=== PATIENT | male | born 1965 | race Caucasian/White ===

== ENCOUNTER 2016-11-27 10:17 | Emergency (ER) | payer MEDICAID ==
[~2016-11-27 10:17] MED LIST: Tetracaine HCl/PF 0.5% 4 ML Bottle ONE
[2016-11-27] MEDS ORDERED: Tetracaine HCl/PF 0.5% 4 ML Bottle EYEBOTH ONE (10:19)
[2016-11-27] MEDS ORDERED: Sodium Chloride 0.9% 1,000 ML IRR SCH (10:30)
[2016-11-27] MEDS ORDERED: Ketorolac 60 MG/2 ML SDV IM ONE (10:32)
[2016-11-27 11:03] VITALS: BP 144/87
[2016-11-27] MEDS ORDERED: HYDROmorphone 1 MG/ML Syringe IM ONE (11:09)
[2016-11-27] MEDS ORDERED: Proparacaine 0.5% Ophth Soln 15 ML Bottle EYEBOTH STA (11:26)
--- NOTE | 2016-11-27 13:12 | EDM.PDOC ---
ED HPI EYE COMPLAINT - General Chief Complaint: ENT Problem Stated Complaint: MEDICAL [facility]IA [facility] Time Seen by Provider: 11/27/16 13:01 Source: Reports: Patient, RN notes reviewed History Limitations: Reports: No limitations - History of Present Illness INITIAL COMMENTS - FREE TEXT/NARRATIVE: 50-year-old gentleman presents emergency department today via EMS services for chemical exposure to both eyes he was at work cleaning breath since with a combination of limited use and salt he did have flushing immediately on scene and then reported to the emergency department for further care - Related Data Allergies/ADRs: Allergies No Known Allergies Allergy (Verified 08/02/16 01:17) Home Meds: Ambulatory Orders Medication Instructions Recorded Confirmed Aspirin 08/19/16 Past Medical History HEENT History: Reports: Other (see below) Other HEENT History: Dental caries Cardiovascular History: Reports: Hypertension Musculoskeletal History: Reports: Fracture Psychiatric History: Reports: Anxiety, Depression - Infectious Disease History Infectious Disease History: Reports: Chicken pox, Measles, Mumps - Past Surgical History HEENT Surgical History: Reports: Eye surgery Social & Family History - Tobacco Use Smoking Status *Q: Current Every Day Smoker Years of Tobacco use: 35 Packs/Tins Daily: 0.5 Second Hand Smoke Exposure: Yes - Caffeine Use Caffeine Use: Reports: Coffee, Energy drinks, Soda, Tea - Alcohol Use Days Per Week of Alcohol Use: 7 Number of Drinks Per Day: 5 Total Drinks Per Week: 35 - Recreational Drug Use Recreational Drug Use: Yes Drug Use in Last 12 Months: Yes Recreational Drug Type: Reports: Marijuana/Hashish Recreational Drug Use Frequency: Socially ED ROS GENERAL - Review of Systems Review Of Systems: See Below Constitutional: Reports: no symptoms HEENT: Reports: Eye discharge, Eye pain Respiratory: Reports: No Symptoms Cardiovascular: Reports: No symptoms GI/Abdominal: Reports: No symptoms : Reports: no symptoms ED EXAM GENERAL W FULL EYE - Physical Exam Exam: See Below Exam Limited By: No limitations General Appearance: alert, mild distress Eye Exam: bilateral eye: normal inspection, PERRL (Cannot) Visual acuity (R) 20/: 30 Visual acuity (L) 20/: 200 With Correction: No Eyelids: bilateral: normal appearance Conjunctiva & Sclera: bilateral: injected Cornea Exam: bilateral: corneal abrasion Extraocular Movements: bilateral: intact Pupils: normal accommodation Pupillary Size: bilateral: 4 mm Pupillary Reaction: bilateral: brisk Anterior Chamber: bilateral: normal appearance Course - Vital Signs Last Recorded V/S: Last Vital Signs Temp 97.2 F 11/27/16 11:05 Pulse 58 L 11/27/16 11:05 Resp 18 11/27/16 11:05 BP 144/87 H 11/27/16 11:05 Pulse Ox 99 11/27/16 11:05 - Orders/Labs/Meds Orders: Active Orders 24 hr Category Date Time Status Sodium Chloride 0.9% [Normal Saline] 1,000 ml Med 11/27/16 10:30 Active IRR ASDIRECTED Medication Orders Sodium Chloride (Normal Saline) 1,000 mls @ 999 mls/hr IRR ASDIRECTED CINDI Last Admin: 11/27/16 10:41 Dose: 999 mls/hr Meds: Medications Generic Name Dose Route Start Last Admin Trade Name Freq PRN Reason Stop Dose Admin Sodium Chloride 1,000 mls @ 999 mls/hr 11/27/16 10:30 11/27/16 10:41 Normal Saline IRR 999 mls/hr ASDIRECTED CINDI Administration Discontinued Medications Generic Name Dose Route Start Last Admin Trade Name Freq PRN Reason Stop Dose Admin Hydromorphone HCl 1 mg 11/27/16 11:09 11/27/16 11:18 Dilaudid IM 11/27/16 11:10 1 mg ONETIME ONE Administration Ketorolac Tromethamine 60 mg 11/27/16 10:32 11/27/16 10:38 Toradol IM 11/27/16 10:33 60 mg ONETIME ONE Administration Proparacaine HCl 4 ml 11/27/16 11:26 11/27/16 11:34 Proparacaine 0.5% Ophth Soln EYEBOTH 11/27/16 11:27 4 ml NOW STA Administration Tetracaine HCl 4 ml 11/27/16 10:19 11/27/16 10:41 Tetracaine 0.5% Steri-Unit Ophelia EYEBOTH 11/27/16 10:20 4 ml ASDIRECTED ONE Administration Departure - Departure Time of Disposition: 13:34 Disposition: Home, Self-Care 01 Condition: fair Clinical Impression: Chemical exposure of eye Forms: ED Department Discharge Additional Instructions: Please followup at the [place] [facility] at 2:15 today for further evaluation - My Orders Last 24 Hours: My Active Orders 11/27/16 10:30 Sodium Chloride 0.9% [Normal Saline] 1,000 ml IRR ASDIRECTED - Assessment/Plan Last 24 Hours: My Active Orders 11/27/16 10:30 Sodium Chloride 0.9% [Normal Saline] 1,000 ml IRR ASDIRECTED Plan: Assessment Acuity = acute Site and laterality = chemical exposure to both eyes Etiology = combination limit juice and salt Manifestations = pain bilaterally Location of injury = work Lab values = none Plan Tetanus was in 2016, because his vision was so poor in the left eye, I was able to secure him and appointment with the basin cleaner at 2:15 today for further evaluation Patient was in agreement with the plan all questions were answered, they were instructed to return to the emergency department or call for worsening symptoms. This note was dictated using [employer] Android POS voice recognition software please call with any questions.
== END 2016-11-27 13:55 | disposition home or self-care (01) ==
LOC: JP.ED 10:17
DX: S05.02XA Injury of conjunctiva and corneal abrasion without foreign body, left eye, initial encounter (principal); S05.01XA Injury of conjunctiva and corneal abrasion without foreign body, right eye, initial encounter; I10 Essential (primary) hypertension; F41.9 Anxiety disorder, unspecified; F32.9 Major depressive disorder, single episode, unspecified; F17.210 Nicotine dependence, cigarettes, uncomplicated; Z98.890 Other specified postprocedural states; Z79.82 Long term (current) use of aspirin; X58.XXXA Exposure to other specified factors, initial encounter
CPT/HCPCS: 96372; 99283; A9270; J1170; J1885; J7040

== ENCOUNTER 2017-07-04 10:41 | Emergency (ER) | payer MEDICAID, OTHER ==
--- NOTE | 2017-07-04 10:51 | EDM.PDOC ---
ED HPI GENERAL MEDICAL PROBLEM - General Chief Complaint: Neurological Problem Stated Complaint: MEDICAL Time Seen by Provider: 07/04/17 10:41 Source of Information: Reports: Other (EMS). Denies: Patient History Limitations: Reports: Altered Mental Status - History of Present Illness INITIAL COMMENTS - FREE TEXT/NARRATIVE: Wood presents to the ER via ambulance. He is obtunded and unable to provide any history at this time. per report from the paramedics he was at work this morning and acting unusual. He suddenly dropped down to his knees and then slowly slumped over backwards. He was unresponsive after that and paramedics were summoned. Initially after their arrival he continued to be tongue did but then became very agitated and received 250 mg of ketamine and 1.6 mg of Versed. He was mildly hypertensive and mildly tachycardic in route but otherwise remained sedated. Since arrival to the emergency room he has started to clear up and is opening his eyes and mumbling a little. Primary examination does not reveal any evidence for trauma. No evidence for head trauma. He is mildly hypoxic and respiratory rate is around 12. - Related Data Allergies Allergy/AdvReac Type Severity Reaction Status Date / Time No Known Allergies Allergy Verified 11/27/16 13:35 Home Meds: Home Meds Aspirin 1 tab PO DAILY 08/19/16 [History] Amoxicillin [Amoxicillin] 07/04/17 [History] Ibuprofen [Ibuprofen] 800 mg Q6HR 07/04/17 [History] Past Medical History HEENT History: Reports: Other (See Below) Other HEENT History: Dental caries Cardiovascular History: Reports: Hypertension Musculoskeletal History: Reports: Fracture Psychiatric History: Reports: Anxiety, Depression - Infectious Disease History Infectious Disease History: Reports: Chicken Pox, Measles, Mumps - Past Surgical History HEENT Surgical History: Reports: Eye Surgery Social & Family History - Family History Family Medical History: Unobtainable (patient obtunded) - Tobacco Use Smoking Status *Q: Current Every Day Smoker Years of Tobacco use: 35 Packs/Tins Daily: 0.5 Second Hand Smoke Exposure: Yes - Caffeine Use Caffeine Use: Reports: Coffee, Energy Drinks, Soda, Tea - Alcohol Use Days Per Week of Alcohol Use: 7 Number of Drinks Per Day: 5 Total Drinks Per Week: 35 - Recreational Drug Use Recreational Drug Use: Yes Drug Use in Last 12 Months: Yes Recreational Drug Type: Reports: Marijuana/Hashish Recreational Drug Use Frequency: Socially ED ROS GENERAL - Review of Systems Review Of Systems: Unable To Obtain (patient obtunded) - Physical Exam Exam: See Below Exam Limited By: Altered Mental Status General Appearance: No Apparent Distress. No: Alert, Anxious Eye Exam: Bilateral Eye: Normal Inspection, PERRL Ears: Normal External Exam Nose: Normal Inspection, Other (nasal trumpet left nare) Head Exam: Atraumatic. No: Scalp Lacerations, Scalp Abrasions, Facial Abrasions Neck: Normal Inspection, Supple. No: Lymphadenopathy (R), Lymphadenopathy (L), Thyromegaly Respiratory/Chest: No Respiratory Distress, Lungs Clear, Normal Breath Sounds, No Accessory Muscle Use Cardiovascular: Normal Peripheral Pulses, No Murmur, Tachycardia. No: Irregularly Irregular GI/Abdominal: Normal Bowel Sounds, Soft, Non-Tender, No Distention, No Mass Neuro Exam (Abbreviated): Unresponsive. No: Alert, Oriented Back Exam: Normal Inspection Extremities: Normal Inspection. No: Joint Swelling, Increased Warmth Psychiatric: Other (obtunded) Skin Exam: Warm, Dry, Other (small healed abrasion medial right knee) EKG INTERPRETATION EKG Date: 07/04/17 Rhythm: NSR Rate (Beats/Min): 98 [place]: LAD-Left [place] Deviation ([id number]) P-Wave: Present QRS: Normal ST-T: Normal Course - Vital Signs Last Recorded V/S: Last Vital Signs Temp 36.8 C 07/04/17 11:02 Pulse 63 07/04/17 12:53 Resp 16 07/04/17 12:53 BP 142/76 H 07/04/17 12:53 Pulse Ox 100 07/04/17 12:53 - Orders/Labs/Meds Orders: Active Orders 24 hr Category Date Time Status EKG Documentation Completion [RC] ASDIRECTED Care 07/04/17 10:45 Active Insert Beltran Catheter [Insert Urinary Catheter] [OM.PC] Care 07/04/17 11:00 Ordered Q24H Pulse Oximetry [RC] ASDIRECTED Care 07/04/17 10:48 Active Telemetry Monitoring [Cardiac Monitoring] [RC] .As Care 07/04/17 10:48 Active Directed Urinary Catheter Assessment [RC] ASDIRECTED Care 07/04/17 10:47 Active Sodium Chloride 0.9% [Normal Saline] 1,000 ml Med 12/06/17 11:00 Active IV ASDIRECTED EKG 12 Lead [EK] Stat Ther 07/04/17 10:44 Ordered Medication Orders Sodium Chloride (Normal Saline) 1,000 mls @ 999 mls/hr IV ASDIRECTED CINDI Last Admin: 07/04/17 11:00 Dose: 999 mls/hr Labs: Laboratory Tests 07/04/17 07/04/17 07/04/17 Range/Units 11:00 11:00 11:00 WBC 8.1 (4.5-11.0) K/uL RBC 4.32 (4.30-5.90) M/uL Hgb 14.5 (12.0-15.0) g/dL Hct 42.5 (40.0-54.0) % MCV 98 (80-98) fL MCH 34 H (27-31) pg MCHC 34 (32-36) % Plt Count 173 (150-400) K/uL Neut % (Auto) 67 H (36-66) % Lymph % (Auto) 27 (24-44) % [place] % (Auto) 5 (2-6) % Eos % (Auto) 0 L (2-4) % Baso % (Auto) 0 (0-1) % Puncture Site ABG pH (7.350-7.450) ABG pCO2 (35.0-42.0) mmHg ABG pO2 (75.0-100.0) mmHg ABG HCO3 (22.0-26.0) mmol/L ABG Total CO2 (23.0-27.0) mmol/L ABG O2 Saturation (95.0-98.0) % ABG O2 Content (15.0-23.0) %vol ABG Base Excess mm/L ABG Hemoglobin (13.5-18.0) g/dL ABG Oxyhemoglobin % ABG Carboxyhemoglobin (0.0-1.6) % ABG Methemoglobin % Ori Test O2 Delivery Device Oxygen Flow Rate L Sodium 143 (140-148) mmol/L Potassium 3.7 (3.6-5.2) mmol/L Chloride 105 (100-108) mmol/L Carbon Dioxide 25 (21-32) mmol/L Anion Gap 13.5 (5.0-14.0) mmol/L BUN 16 (7-18) mg/dL Creatinine 1.0 (0.8-1.3) mg/dL Est Cr Clr Drug Dosing TNP Estimated GFR (MDRD) > 60 (>60) Glucose 87 (74-106) mg/dL Lactic Acid 2.5 H (0.4-2.0) mmol/L Calcium 8.3 L (8.5-10.1) mg/dL Total Bilirubin 0.6 (0.2-1.0) mg/dL AST 26 (15-37) U/L ALT 27 (12-78) U/L Alkaline Phosphatase 57 (46-116) U/L Troponin I < 0.017 (0.000-0.056) ng/mL Total Protein 7.0 (6.4-8.2) g/dL Albumin 4.0 (3.4-5.0) g/dL Globulin 3.0 (2.3-3.5) g/dL Albumin/Globulin Ratio 1.3 (1.2-2.2) Urine Color Urine Appearance Urine pH (4.5-8.0) Ur Specific [place] (1.008-1.030) Urine Protein (NEGATIVE) mg/dL Urine Glucose (UA) (NEGATIVE) mg/dL Urine Ketones (NEGATIVE) mg/dL Urine Occult Blood (NEGATIVE) Urine Nitrite (NEGAITVE) Urine Bilirubin (NEGATIVE) Urine Urobilinogen (NORMAL) mg/dL Ur Leukocyte Esterase (NEGATIVE) Urine RBC (0-5) Urine WBC (0-5) Ur Epithelial Cells Amorphous Sediment Urine Bacteria Urine Mucus Urine Opiates Screen (NEGATIVE) Ur Oxycodone Screen (NEGATIVE) Urine Methadone Screen (NEGATIVE) Ur Propoxyphene Screen (NEGATIVE) Ur Barbiturates Screen (NEGATIVE) Ur Tricyclics Screen (NEGATIVE) Ur Phencyclidine Scrn (NEGATIVE) Ur Amphetamine Screen (NEGATIVE) U Methamphetamines Scrn (NEGATIVE) Urine MDMA Screen (NEGATIVE) U Benzodiazepines Scrn (NEGATIVE) U Cocaine Metab Screen (NEGATIVE) U Marijuana (THC) Screen (NEGATIVE) Ethyl Alcohol mg/dL 07/04/17 07/04/17 07/04/17 Range/Units 11:00 11:00 11:00 WBC (4.5-11.0) K/uL RBC (4.30-5.90) M/uL Hgb (12.0-15.0) g/dL Hct (40.0-54.0) % MCV (80-98) fL MCH (27-31) pg MCHC (32-36) % Plt Count (150-400) K/uL Neut % (Auto) (36-66) % Lymph % (Auto) (24-44) % [place] % (Auto) (2-6) % Eos % (Auto) (2-4) % Baso % (Auto) (0-1) % Puncture Site ABG pH (7.350-7.450) ABG pCO2 (35.0-42.0) mmHg ABG pO2 (75.0-100.0) mmHg ABG HCO3 (22.0-26.0) mmol/L ABG Total CO2 (23.0-27.0) mmol/L ABG O2 Saturation (95.0-98.0) % ABG O2 Content (15.0-23.0) %vol ABG Base Excess mm/L ABG Hemoglobin (13.5-18.0) g/dL ABG Oxyhemoglobin % ABG Carboxyhemoglobin (0.0-1.6) % ABG Methemoglobin % Ori Test O2 Delivery Device Oxygen Flow Rate L Sodium (140-148) mmol/L Potassium (3.6-5.2) mmol/L Chloride (100-108) mmol/L Carbon Dioxide (21-32) mmol/L Anion Gap (5.0-14.0) mmol/L BUN (7-18) mg/dL Creatinine (0.8-1.3) mg/dL Est Cr Clr Drug Dosing Estimated GFR (MDRD) (>60) Glucose (74-106) mg/dL Lactic Acid (0.4-2.0) mmol/L Calcium (8.5-10.1) mg/dL Total Bilirubin (0.2-1.0) mg/dL AST (15-37) U/L ALT (12-78) U/L Alkaline Phosphatase (46-116) U/L Troponin I (0.000-0.056) ng/mL Total Protein (6.4-8.2) g/dL Albumin (3.4-5.0) g/dL Globulin (2.3-3.5) g/dL Albumin/Globulin Ratio (1.2-2.2) Urine Color Yellow Urine Appearance Slightly cloudy Urine pH 5.0 (4.5-8.0) Ur Specific [place] 1.020 (1.008-1.030) Urine Protein Negative (NEGATIVE) mg/dL Urine Glucose (UA) Normal (NEGATIVE) mg/dL Urine Ketones Negative (NEGATIVE) mg/dL Urine Occult Blood Negative (NEGATIVE) Urine Nitrite Negative (NEGAITVE) Urine Bilirubin Negative (NEGATIVE) Urine Urobilinogen Normal (NORMAL) mg/dL Ur Leukocyte Esterase Negative (NEGATIVE) Urine RBC 0-5 (0-5) Urine WBC 0-5 (0-5) Ur Epithelial Cells Few Amorphous Sediment Packed Urine Bacteria Not seen Urine Mucus Not seen Urine Opiates Screen Negative (NEGATIVE) Ur Oxycodone Screen Negative (NEGATIVE) Urine Methadone Screen Negative (NEGATIVE) Ur Propoxyphene Screen Negative (NEGATIVE) Ur Barbiturates Screen Negative (NEGATIVE) Ur Tricyclics Screen Negative (NEGATIVE) Ur Phencyclidine Scrn Negative (NEGATIVE) Ur Amphetamine Screen Negative (NEGATIVE) U Methamphetamines Scrn Negative (NEGATIVE) Urine MDMA Screen Negative (NEGATIVE) U Benzodiazepines Scrn Negative (NEGATIVE) U Cocaine Metab Screen Negative (NEGATIVE) U Marijuana (THC) Screen Positive H (NEGATIVE) Ethyl Alcohol 296 mg/dL 07/04/17 Range/Units 11:02 WBC (4.5-11.0) K/uL RBC (4.30-5.90) M/uL Hgb (12.0-15.0) g/dL Hct (40.0-54.0) % MCV (80-98) fL MCH (27-31) pg MCHC (32-36) % Plt Count (150-400) K/uL Neut % (Auto) (36-66) % Lymph % (Auto) (24-44) % [place] % (Auto) (2-6) % Eos % (Auto) (2-4) % Baso % (Auto) (0-1) % Puncture Site Lt radial ABG pH 7.324 L (7.350-7.450) ABG pCO2 46.7 H (35.0-42.0) mmHg ABG pO2 133.0 H (75.0-100.0) mmHg ABG HCO3 23.6 (22.0-26.0) mmol/L ABG Total CO2 21.1 L (23.0-27.0) mmol/L ABG O2 Saturation 98.1 H (95.0-98.0) % ABG O2 Content 19.7 (15.0-23.0) %vol ABG Base Excess -2.2 mm/L ABG Hemoglobin 14.4 (13.5-18.0) g/dL ABG Oxyhemoglobin 96.3 % ABG Carboxyhemoglobin 1.2 (0.0-1.6) % ABG Methemoglobin 0.6 % Ori Test Pass O2 Delivery Device Room air Oxygen Flow Rate 3 L Sodium (140-148) mmol/L Potassium (3.6-5.2) mmol/L Chloride (100-108) mmol/L Carbon Dioxide (21-32) mmol/L Anion Gap (5.0-14.0) mmol/L BUN (7-18) mg/dL Creatinine (0.8-1.3) mg/dL Est Cr Clr Drug Dosing Estimated GFR (MDRD) (>60) Glucose (74-106) mg/dL Lactic Acid (0.4-2.0) mmol/L Calcium (8.5-10.1) mg/dL Total Bilirubin (0.2-1.0) mg/dL AST (15-37) U/L ALT (12-78) U/L Alkaline Phosphatase (46-116) U/L Troponin I (0.000-0.056) ng/mL Total Protein (6.4-8.2) g/dL Albumin (3.4-5.0) g/dL Globulin (2.3-3.5) g/dL Albumin/Globulin Ratio (1.2-2.2) Urine Color Urine Appearance Urine pH (4.5-8.0) Ur Specific [place] (1.008-1.030) Urine Protein (NEGATIVE) mg/dL Urine Glucose (UA) (NEGATIVE) mg/dL Urine Ketones (NEGATIVE) mg/dL Urine Occult Blood (NEGATIVE) Urine Nitrite (NEGAITVE) Urine Bilirubin (NEGATIVE) Urine Urobilinogen (NORMAL) mg/dL Ur Leukocyte Esterase (NEGATIVE) Urine RBC (0-5) Urine WBC (0-5) Ur Epithelial Cells Amorphous Sediment Urine Bacteria Urine Mucus Urine Opiates Screen (NEGATIVE) Ur Oxycodone Screen (NEGATIVE) Urine Methadone Screen (NEGATIVE) Ur Propoxyphene Screen (NEGATIVE) Ur Barbiturates Screen (NEGATIVE) Ur Tricyclics Screen (NEGATIVE) Ur Phencyclidine Scrn (NEGATIVE) Ur Amphetamine Screen (NEGATIVE) U Methamphetamines Scrn (NEGATIVE) Urine MDMA Screen (NEGATIVE) U Benzodiazepines Scrn (NEGATIVE) U Cocaine Metab Screen (NEGATIVE) U Marijuana (THC) Screen (NEGATIVE) Ethyl Alcohol mg/dL Meds: Medications Generic Name Dose Route Start Last Admin Trade Name Freq PRN Reason Stop Dose Admin Sodium Chloride 1,000 mls @ 999 mls/hr 07/04/17 11:00 07/04/17 11:00 Normal Saline IV 999 mls/hr ASDIRECTED CINDI Administration Discontinued Medications Generic Name Dose Route Start Last Admin Trade Name Freq PRN Reason Stop Dose Admin Sodium Chloride 1,000 mls @ 999 mls/hr 07/04/17 12:02 07/04/17 12:46 Normal Saline IV 07/04/17 13:02 999 mls/hr .BOLUS ONE Administration - Radiology Interpretation Free Text/Narrative:: chest x-ray - images personally reviewed - lungs are clear. No mass, infiltrate or effusion rate heart size is normal Head CT - images personally reviewed. Radiology interpretation pending - no evidence for bleed or intracranial abnormality. He does have some beam artifact in the lower portion of the cranium - Re-Assessments/Exams Free Text/Narrative Re-Assessment/Exam: 07/04/17 13:46 laboratory studies normal other than alcohol level of 296 and lactic acid of 2.5. Head CT and chest x-ray were unremarkable for acute findings. Patient has cleared appropriately throughout the course of the afternoon. He has received 2 L of normal saline. I suspect this is all related to alcohol intoxication and some hypovolemia. I believe he is safe to go home at this point and will be riding home with a friend this afternoon. He is not interested in help with his alcohol use at this time. Departure - Departure Time of Disposition: 13:47 Disposition: Home, Self-Care 01 Clinical Impression: Alcohol intoxication - Discharge Information Referrals: PCP,None [Primary Care Provider] - Forms: ED Department Discharge Additional Instructions: please continue to take your antibiotics for the dental infection. Use ibuprofen as needed for pain - My Orders Last 24 Hours: My Active Orders 07/04/17 10:44 EKG 12 Lead [EK] Stat 07/04/17 10:45 EKG Documentation Completion [RC] ASDIRECTED 07/04/17 10:47 Urinary Catheter Assessment [RC] ASDIRECTED 07/04/17 10:48 Pulse Oximetry [RC] ASDIRECTED Telemetry Monitoring [Cardiac Monitoring] [RC] .As Directed 07/04/17 11:00 Insert Beltran Catheter [Insert Urinary Catheter] [OM.PC] Q24H Sodium Chloride 0.9% [Normal Saline] 1,000 ml IV ASDIRECTED - Assessment/Plan Last 24 Hours: My Active Orders 07/04/17 10:44 EKG 12 Lead [EK] Stat 07/04/17 10:45 EKG Documentation Completion [RC] ASDIRECTED 07/04/17 10:47 Urinary Catheter Assessment [RC] ASDIRECTED 07/04/17 10:48 Pulse Oximetry [RC] ASDIRECTED Telemetry Monitoring [Cardiac Monitoring] [RC] .As Directed 07/04/17 11:00 Insert Beltran Catheter [Insert Urinary Catheter] [OM.PC] Q24H Sodium Chloride 0.9% [Normal Saline] 1,000 ml IV ASDIRECTED
[2017-07-04] MEDS ORDERED: Sodium Chloride 0.9% 1,000 ML IV SCH (11:00)
--- NOTE | 2017-07-04 11:34 | CT ---
Head wo Cont INDICATION: unresponsive TECHNIQUE: CT images of the head obtained without IV contrast. DLP: 731 mGycm COMPARISON: No prior head CT. Facial bones from 01/21/2016 FINDINGS: Extensive fixation hardware at the base of the skull on the left extending anteriorly to the orbit, with associated metallic artifact. Otherwise no acute intracranial abnormality. No edema, hemorrhage, or mass effect. Mild bifrontal atrophy. Ventricles normal size. Skull appears intact. Muc osal thickening ethmoid air cells. The superior most visualized portion of the right maxillary sinus is opacified. There is discontinuity of the right zygomatic arch noted on the first image. This may b e volume averaging or due to trauma, possibly old. IMPRESSION: 1. No acute intracranial abnormality. 2. Extensive postoperative changes on the left. 3. Correlate for trauma to the right side zygomatic arch, as described above.
--- NOTE | 2017-07-04 11:48 | CR ---
Chest 1V Frontal INDICATION: unresponsive COMPARISON: None FINDINGS: Single view of the chest obtained shows normal heart size. No infiltrate or pleural effus ion. No signs of pulmonary edema. IMPRESSION: Negative single view of the chest.
[2017-07-04] MEDS ORDERED: Sodium Chloride 0.9% 1,000 ML IV ONE (12:02)
[2017-07-04 12:54] VITALS: BP 142/76
== END 2017-07-04 14:57 | disposition home or self-care (01) ==
LOC: JP.ED 10:41
DX: F10.129 Alcohol abuse with intoxication, unspecified (principal); S80.211A Abrasion, right knee, initial encounter; Y90.8 Blood alcohol level of 240 mg/100 ml or more; I10 Essential (primary) hypertension; F17.210 Nicotine dependence, cigarettes, uncomplicated; F32.9 Major depressive disorder, single episode, unspecified; Z79.82 Long term (current) use of aspirin; X58.XXXA Exposure to other specified factors, initial encounter
CPT/HCPCS: 36415; 36600; 51702; 70450; 71010; 80053; 80305; 81001; 82803; 83605; 84484; 85025; 93005; 96360; 96361; 99285; G0480; J7040

== ENCOUNTER 2018-09-20 10:58 | Emergency (ER) | payer BC, MEDICAID ==
[2018-09-20 11:12] VITALS: BP 139/77
[2018-09-20] MEDS ORDERED: Cetirizine 10 MG Tab PO ONE (11:24)
[2018-09-20] MEDS ORDERED: methylPREDNISolone Sodium Succinate 125 MG/2 ML SDV IM ONE (11:24)
--- NOTE | 2018-09-20 11:29 | EDM.PDOC ---
ED HPI GENERAL MEDICAL PROBLEM - General Chief Complaint: Allergic Reaction Stated Complaint: POSSIBLE ALLERGIC REACTION Time Seen by Provider: 09/20/18 11:18 History Limitations: Reports: No Limitations - History of Present Illness INITIAL COMMENTS - FREE TEXT/NARRATIVE: Patient presents with complaints of allergic reaction to bleach. Wood states he was trying to wash one his white shirts with bleach yesterday and suddenly developed itching and a rash to his hands. He states the rash spread to his arms and shoulders. He reports itching with raised red welts. - Related Data Allergies Allergy/AdvReac Type Severity Reaction Status Date / Time No Known Allergies Allergy Verified 11/27/16 13:35 Home Meds: Home Meds Aspirin 1 tab PO DAILY 08/19/16 [History] Amoxicillin 07/04/17 [History] Ibuprofen 800 mg Q6HR 07/04/17 [History] Past Medical History HEENT History: Reports: Other (See Below) Other HEENT History: Dental caries Cardiovascular History: Reports: Hypertension Musculoskeletal History: Reports: Fracture Psychiatric History: Reports: Anxiety, Depression - Infectious Disease History Infectious Disease History: Reports: Chicken Pox, Measles, Mumps - Past Surgical History HEENT Surgical History: Reports: Eye Surgery Social & Family History - Family History Family Medical History: Unobtainable - Tobacco Use Smoking Status *Q: Heavy Tobacco Smoker Years of Tobacco use: 20 Packs/Tins Daily: 1 - Caffeine Use Caffeine Use: Reports: Coffee, Soda - Recreational Drug Use Recreational Drug Use: No ED ROS ALLERGIC REACTION - Review of Systems Review Of Systems: See Below Constitutional: Denies: Fever, Chills HEENT: Reports: No Symptoms Respiratory: Denies: Shortness of Breath, Wheezing, Cough, Sputum Cardiovascular: Reports: No Symptoms Endocrine: Reports: No Symptoms Musculoskeletal: Reports: No Symptoms Skin: Reports: Rash, Urticaria Neurological: Reports: No Symptoms Psychiatric: Reports: No Symptoms Hematologic/Lymphatic: Reports: No Symptoms Immunologic: Reports: No Symptoms ED EXAM GENERAL NO PERIP PULSE - Physical Exam Exam: See Below Text/Narrative:: Wood is an alert and oriented 52 year old male presenting with complaints of acute onset urticaria and hives yesterday after use of bleach. He denies SOB, facial/lip swelling, itching in throat or other concerns. Exam Limited By: No Limitations General Appearance: Alert, WD/WN, No Apparent Distress Eye Exam: Bilateral Eye: EOMI Ears: Normal External Exam, Normal Canal, Hearing Grossly Normal, Normal TMs Nose: Normal Inspection, No Blood Throat/Mouth: Normal Inspection, Normal Lips, Normal Gums, Normal Oropharynx, Normal Voice Head: Atraumatic, Normocephalic Neck: Normal Inspection, Supple, Non-Tender, Full Range of Motion. No: Lymphadenopathy (R), Lymphadenopathy (L) Respiratory/Chest: No Respiratory Distress, Lungs Clear, Normal Breath Sounds, No Accessory Muscle Use, Chest Non-Tender Cardiovascular: Normal Peripheral Pulses, Regular Rate, Rhythm, No Edema, No Murmur, No Rub Back Exam: Normal Inspection, Full Range of Motion. No: CVA Tenderness (R), CVA Tenderness (L) Extremities: Normal Range of Motion, Non-Tender, Normal Capillary Refill, Other (Rash) Neurological: Alert, Oriented, CN II-XII Intact, Normal Cognition, Normal Gait, Normal Reflexes, No Motor/Sensory Deficits Psychiatric: Normal Affect, Normal Mood Skin Exam: Warm, Dry, Intact, Other (Raised, erythematous wheels to bilateral arms, shoulders.) Lymphatic: No Adenopathy Course - Vital Signs Last Recorded V/S: Last Vital Signs Temp 36.8 C 09/20/18 11:14 Pulse 78 09/20/18 11:14 Resp 15 09/20/18 11:14 BP 139/77 09/20/18 11:14 Pulse Ox 91 L 09/20/18 11:14 - Orders/Labs/Meds Meds: Medications Discontinued Medications Generic Name Dose Route Start Last Admin Trade Name Freq PRN Reason Stop Dose Admin Cetirizine HCl 10 mg 09/20/18 11:24 09/20/18 11:31 Zyrtec PO 09/20/18 11:25 10 mg ONETIME ONE Administration Methylprednisolone Sodium Succinate 125 mg 09/20/18 11:24 09/20/18 11:31 Solu-Medrol IM 09/20/18 11:25 125 mg ONETIME ONE Administration Departure - Departure Time of Disposition: 11:25 Disposition: Home, Self-Care 01 Condition: Good Clinical Impression: Urticaria, Allergic angioedema - Discharge Information *PRESCRIPTION DRUG MONITORING PROGRAM REVIEWED*: Not Applicable *COPY OF PRESCRIPTION DRUG MONITORING REPORT IN PATIENT MATTHEW: Not Applicable Instructions: Hives, Allergies, Adult, [id number] Referrals: Yvonne Ureña MD [Primary Care Provider] - Forms: ED Department Discharge Additional Instructions: You have been evaluated and treated for allergic reaction/urticaria to bleach. You were given solumedrol 125mg as a shot and cetirizine 10 mg pill in the emergency room. Stay away from bleach. You can take benadryl 50mg by mouth three times a day for itching/hives. You can also take cetirizine (zyrtec) 10 mg by mouth once a day for itching/ hives. Keep yourself hydrated. Return for worsening, issues or concerns. - Assessment/Plan Assessment:: Urticaria, Allergic angioedema Plan: Patient evaluated and treated for allergic reaction/urticaria to bleach. He was given solumedrol 125mg IM and cetirizine 10 mg PO in the emergency room. Advised to stay away from bleach. He can take benadryl 50mg by mouth three times a day for itching/hives. He can also take cetirizine (zyrtec) 10 mg by mouth once a day for itching/ hives. Keep hydrated. Return for worsening, issues or concerns.
== END 2018-09-20 11:36 | disposition home or self-care (01) ==
LOC: JP.ED 10:58
DX: T78.3XXA Angioneurotic edema, initial encounter (principal); T78.49XA Other allergy, initial encounter; I10 Essential (primary) hypertension; F17.210 Nicotine dependence, cigarettes, uncomplicated; Z79.82 Long term (current) use of aspirin
CPT/HCPCS: 96372; 99283; A9270; J2930

== ENCOUNTER 2019-02-01 08:50 | Emergency (ER) | payer MEDICAID ==
[2019-02-01 09:07] VITALS: BP 150/92; PULSE 79
--- NOTE | 2019-02-01 09:15 | EDM.PDOC ---
ED HPI GENERAL MEDICAL PROBLEM - General Chief Complaint: Lower Extremity Injury/Pain Stated Complaint: KNEE INJURY Time Seen by Provider: 02/01/19 09:13 Source of Information: Reports: Patient History Limitations: Reports: No Limitations - History of Present Illness INITIAL COMMENTS - FREE TEXT/NARRATIVE: pt has had sig knee pain for about 2 monthes. He saw Tone Cooper and was placed on voltaren. He is very uncomfortable. He is not able to have a MRI because he has metal in his eye. He was supposed to follow up with a scope, Onset: Gradual Duration: Hour(s): Location: Reports: Lower Extremity, Left Associated Symptoms: Reports: No Other Symptoms Left Knee Pain Score (Numeric/FACES): 10 - Related Data Allergies Allergy/AdvReac Type Severity Reaction Status Date / Time No Known Allergies Allergy Verified 02/01/19 09:06 Home Meds: Home Meds Ibuprofen 100 mg PO Q6HR 07/04/17 [History] Diclofenac Sodium 0.5 gm TP TID PRN 02/01/19 [History] Diclofenac Sodium [Voltaren] 1 tab PO TID 02/01/19 [History] Naproxen [Naprosyn] 500 mg PO BID 02/01/19 [History] Past Medical History HEENT History: Reports: Other (See Below) Other HEENT History: Dental caries Cardiovascular History: Reports: Hypertension Musculoskeletal History: Reports: Fracture Psychiatric History: Reports: Anxiety, Depression - Infectious Disease History Infectious Disease History: Reports: Measles, Mumps - Past Surgical History HEENT Surgical History: Reports: Eye Surgery Social & Family History - Family History Family Medical History: Unobtainable - Caffeine Use Caffeine Use: Reports: Coffee, Soda Review of Systems - Review of Systems Review Of Systems: See Below Constitutional: Reports: No Symptoms Eyes: Reports: No Symptoms Ears: Reports: No Symptoms Nose: Reports: No Symptoms Mouth/Throat: Reports: No Symptoms Respiratory: Reports: No Symptoms Cardiovascular: Reports: No Symptoms GI/Abdominal: Reports: No Symptoms Genitourinary: Reports: No Symptoms Musculoskeletal: Reports: Other (pt hyperextended the left knee and he has been having pain in it for the past 3 monthes. ) Skin: Reports: No Symptoms ED EXAM, GENERAL - Physical Exam Exam: See Below Free Text/Narrative:: ptis having increased pain in the left knee. He is not able to straighten the knee. He is trying to work at [employer] and is having increased problems. Exam Limited By: No Limitations General Appearance: Alert, Anxious, Moderate Distress Ears: Normal TMs Nose: Normal Inspection Throat/Mouth: Normal Inspection Head: Atraumatic Neck: Normal Inspection Respiratory/Chest: No Respiratory Distress Cardiovascular: Regular Rate, Rhythm GI/Abdominal: Soft, Non-Tender Extremities: Other (left knee is limited in that he is not able to straighten it. He has metal in his eye and he is not able to have a MRI. He has been placed on voltaren but has not been taking it regularly. ) Course - Vital Signs Last Recorded V/S: Last Vital Signs Temp 35.9 C 02/01/19 09:15 Pulse 79 02/01/19 09:15 Resp 12 02/01/19 09:15 BP 150/92 H 02/01/19 09:15 Pulse Ox 96 02/01/19 09:15 - Orders/Labs/Meds Labs: Laboratory Tests 02/01/19 02/01/19 Range/Units 09:41 09:41 WBC 5.0 (4.5-11.0) K/uL RBC 4.83 (4.30-5.90) M/uL Hgb 15.5 H (12.0-15.0) g/dL Hct 45.5 (40.0-54.0) % MCV 94 (80-98) fL MCH 32 H (27-31) pg MCHC 34 (32-36) % Plt Count 160 (150-400) K/uL Neut % (Auto) 48 (36-66) % Lymph % (Auto) 43 (24-44) % [place] % (Auto) 7 H (2-6) % Eos % (Auto) 1 L (2-4) % Baso % (Auto) 0 (0-1) % Sodium 145 (140-148) mmol/L Potassium 3.9 (3.6-5.2) mmol/L Chloride 107 (100-108) mmol/L Carbon Dioxide 25 (21-32) mmol/L Anion Gap 12.8 (5.0-14.0) mmol/L BUN 11 (7-18) mg/dL Creatinine 0.9 (0.8-1.3) mg/dL Est Cr Clr Drug Dosing 96.88 mL/min Estimated GFR (MDRD) > 60 (>60) Glucose 86 (74-106) mg/dL Calcium 8.2 L (8.5-10.1) mg/dL Meds: Medications Discontinued Medications Generic Name Dose Route Start Last Admin Trade Name Freq PRN Reason Stop Dose Admin Hydrocodone Bitart/Acetaminophen 1 tab 02/01/19 10:37 02/01/19 10:44 [place] 325-5 Mg PO 02/01/19 10:38 1 tab ONETIME ONE Administration Ketorolac Tromethamine 60 mg 02/01/19 10:36 02/01/19 10:45 Toradol IM 02/01/19 10:37 60 mg ONETIME ONE Administration - Re-Assessments/Exams Free Text/Narrative Re-Assessment/Exam: 02/01/19 11:10 pt was given totrdol im 60mg and norco 5/325 . He had a cat scan which did reveal a fair amount of swelling. Departure - Departure Time of Disposition: 11:01 Disposition: Home, Self-Care 01 Condition: Fair Clinical Impression: Inflammation of joint of left knee - Discharge Information Referrals: Yvonne Ureña MD [Primary Care Provider] - Forms: ED Department Discharge Care Plan Goals: cool pack to knee, appt with Ortho next week, resume the voltaren as directed, tramodol 50mg q6h prn for pain.
[2019-02-01] MEDS ORDERED: Ketorolac 60 MG/2 ML SDV IM ONE (10:36)
[2019-02-01] MEDS ORDERED: Acetaminophen/HYDROcodone 325-5 MG Tab PO ONE (10:37)
--- NOTE | 2019-02-01 10:57 | CRLCT ---
HISTORY: Knee pain. FINDINGS: The knee was studied in the axial plane. Sagittal and coronal 2 dimensional reconstructions were then performed. There are no findings for fracture, dislocation, effusion or loose body. The extensor mechanism is intact. Patchy increased density is seen in the anterior subcutaneous fat indicating soft tissue edema. No fluid collection is noted. IMPRESSION: Evidence for mild edema in the anterior subcutaneous fat. No findings for fracture or dislocation. Please note that all CT scans at this facility use dose modulation, iterative reconstruction, and/or weight-based dosing when appropriate to reduce radiation dose to as low as reasonably achievable. Dictated by Chris Gould MD @ Feb 01 2019 2:07PM Signed by Dr. Chris Gould @ Feb 01 2019 2:07PM
== END 2019-02-01 11:20 | disposition home or self-care (01) ==
LOC: JP.ED 08:50
DX: M17.12 Unilateral primary osteoarthritis, left knee (principal); I10 Essential (primary) hypertension; Z79.899 Other long term (current) drug therapy
CPT/HCPCS: 36415; 73700; 80048; 85025; 96372; 99284; A9270; J1885

== ENCOUNTER 2019-02-02 09:20 | Emergency (ER) | payer MEDICAID ==
[2019-02-02 09:45] VITALS: BP 160/96; PULSE 70
[2019-02-02] MEDS ORDERED: Doxycycline 100 MG Cap PO ONE (10:49)
[2019-02-02] MEDS ORDERED: Ibuprofen 200 MG Tab, 24 Tab Bulk Bottle PO ONE (10:50)
--- NOTE | 2019-02-02 10:51 | EDM.PDOC ---
ED HPI GENERAL MEDICAL PROBLEM - General Chief Complaint: Bite:Animal, Insect Stated Complaint: BIT BY BUG ON LEFT ARM Time Seen by Provider: 02/02/19 10:46 Source of Information: Reports: Patient History Limitations: Reports: No Limitations - History of Present Illness INITIAL COMMENTS - FREE TEXT/NARRATIVE: PT STATES HE WAS CAMPING ABOUT 5-6 DAYS AGO AND HE WOKE UP AND HE HAD SEVERAL TICKS --SMALLONES THAT LOOKED LIKE DEER TICKS STUCK TO HIM. hE NOW FEELS ACHEY ALL OVER. hE HAS A HEADACHE. hIS WHOLE BODY HURTS TODAY. hE HAS BEEN HOT AND COLD. hE HAS NOT HAD A COUGH . hE HAS IRRITATION IN HIS THROAT BUT NOT AN ACTUAL SORW THROAT. Onset: Gradual, Other ( LAST 2-3 DAYS WORSE TODAY. ) Duration: Hour(s): Location: Reports: Head, Generalized Quality: Reports: Other (PT HAD A PAINFUL KNEE YESTERDAY AND HAD A CAT SCAN WHICH DID SHOW INFLAMATION. ) Improves with: Reports: None Worsens with: Reports: None Context: Reports: Activity Associated Symptoms: Reports: Fever/Chills, Other (PT HAS THE SENSATION OF BEING HOT AND COLD. ) - Related Data Allergies Allergy/AdvReac Type Severity Reaction Status Date / Time No Known Allergies Allergy Verified 02/02/19 09:46 Home Meds: Home Meds Ibuprofen 100 mg PO Q6HR 07/04/17 [History] Diclofenac Sodium 0.5 gm TP TID PRN 02/01/19 [History] Diclofenac Sodium [Voltaren] 1 tab PO TID 02/01/19 [History] Naproxen [Naprosyn] 500 mg PO BID 02/01/19 [History] Past Medical History HEENT History: Reports: Other (See Below) Other HEENT History: Dental caries Cardiovascular History: Reports: Hypertension Musculoskeletal History: Reports: Fracture Psychiatric History: Reports: Anxiety, Depression - Infectious Disease History Infectious Disease History: Reports: Measles, Mumps - Past Surgical History HEENT Surgical History: Reports: Eye Surgery Social & Family History - Family History Family Medical History: Unobtainable - Tobacco Use Smoking Status *Q: Heavy Tobacco Smoker Years of Tobacco use: 28 Packs/Tins Daily: 1 - Caffeine Use Caffeine Use: Reports: Coffee, Soda - Recreational Drug Use Recreational Drug Use: Yes Recreational Drug Type: Reports: Marijuana/Hashish ED ROS GENERAL - Review of Systems Review Of Systems: See Below Constitutional: Reports: Fever, Chills, Other ( SENSATION OF BEING HOT AND COLD. hE HURTS OVER HIS ENTIRE BODY. ) HEENT: Reports: No Symptoms Respiratory: Reports: No Symptoms Cardiovascular: Reports: No Symptoms Endocrine: Reports: No Symptoms GI/Abdominal: Reports: No Symptoms : Reports: No Symptoms Musculoskeletal: Reports: Muscle Pain Skin: Reports: No Symptoms Neurological: Reports: No Symptoms ED EXAM, ANIMAL BITE - Physical Exam Exam: See Below Text/Narrative:: PT ARRIVED WITH GENERALIZED BODY ACHES. hE HAS A PAINFUL LEFT KNEE WHICH HAS BEEN CHRONIC. hE DID GO CAMPING 1 WEEK AGO AND HE DID HAVE 5-6 TICKS THAT LOOKED LIKE DEER TICKS STUCK ON HIM. Exam Limited By: No Limitations General Appearance: Alert, Anxious, Mild Distress Ears: Normal TMs Nose: Normal Inspection Throat/Mouth: Normal Inspection Head: Atraumatic Neck: Normal Inspection Respiratory/Chest: No Respiratory Distress Cardiovascular: Regular Rate, Rhythm GI/Abdominal: Soft, Non-Tender (Male) Exam: Deferred Rectal (Males) Exam: Deferred Back Exam: Normal Inspection Extremities: Other ( GENERALIZED JOINT PAIN. hE HAS CHRONIC PAIN IN HIS LEFT KNEE. ) Course - Vital Signs Last Recorded V/S: Last Vital Signs Temp 36.4 C 02/02/19 10:00 Pulse 70 02/02/19 10:00 Resp 16 02/02/19 10:00 BP 160/96 H 02/02/19 10:00 Pulse Ox 94 L 02/02/19 10:00 - Orders/Labs/Meds Orders: Active Orders 24 hr Category Date Time Status BABESIA MICROTI ANTIBODY PANEL Stat Lab 02/02/19 10:38 Ordered E. CHAFFEENSIS-HME (MONOCYTIC) Stat Lab 02/02/19 10:43 Ordered HEPATIC FUNCTION PANEL,HFP [CHEM] Stat Lab 02/02/19 10:37 Ordered LYME, TOTAL AB TEST/REFLEX Stat Lab 02/02/19 10:37 Ordered Labs: Laboratory Tests 02/02/19 Range/Units 09:59 WBC 4.4 L (4.5-11.0) K/uL RBC 4.97 (4.30-5.90) M/uL Hgb 15.7 H (12.0-15.0) g/dL Hct 46.8 (40.0-54.0) % MCV 94 (80-98) fL MCH 32 H (27-31) pg MCHC 34 (32-36) % Plt Count 158 (150-400) K/uL Neut % (Auto) 35 L (36-66) % Lymph % (Auto) 50 H (24-44) % [place] % (Auto) 11 H (2-6) % Eos % (Auto) 3 (2-4) % Baso % (Auto) 1 (0-1) % - Re-Assessments/Exams Free Text/Narrative Re-Assessment/Exam: 02/02/19 10:55 PT WAS GIVEN MOTRIN AND DOXYCYLINE. Departure - Departure Time of Disposition: 10:55 Disposition: Home, Self-Care 01 Condition: Fair Clinical Impression: At high risk for tick borne illness - Discharge Information Referrals: PCP,None [Primary Care Provider] - Care Plan Goals: CONTINUE TRAMODOL, DOXYCYLIINE 100MG BID FOR 10 DAYS. - My Orders Last 24 Hours: My Active Orders 02/02/19 10:37 HEPATIC FUNCTION PANEL,HFP [CHEM] Stat LYME, TOTAL AB TEST/REFLEX Stat 02/02/19 10:38 BABESIA MICROTI ANTIBODY PANEL Stat 02/02/19 10:43 E. CHAFFEENSIS-HME (MONOCYTIC) Stat - Assessment/Plan Last 24 Hours: My Active Orders 02/02/19 10:37 HEPATIC FUNCTION PANEL,HFP [CHEM] Stat LYME, TOTAL AB TEST/REFLEX Stat 02/02/19 10:38 BABESIA MICROTI ANTIBODY PANEL Stat 02/02/19 10:43 E. CHAFFEENSIS-HME (MONOCYTIC) Stat
[2019-02-02] MEDS ORDERED: Ibuprofen 600 MG Tab PO ONE (11:05)
[2019-02-05 10:11] LABS: LYME IGG/IGM AB <0.91 ISR (0.00-0.90)
[2019-02-05 14:10] LABS: E. CHAFFEENSIS (HME) IGG TITER Negative (Neg:<1:64); E. CHAFFEENSIS (HME) IGM TITER Negative (Neg:<1:20)
[2019-02-05 16:09] LABS: BABESIA MICROTI IGG <1:10 (Neg:<1:10); BABESIA MICROTI IGM <1:10 (Neg:<1:10)
== END 2019-02-02 11:12 | disposition home or self-care (01) ==
LOC: JP.ED 09:20
DX: T14.8XXA Other injury of unspecified body region, initial encounter (principal); M25.562 Pain in left knee; G89.29 Other chronic pain; F17.210 Nicotine dependence, cigarettes, uncomplicated; W57.XXXA Bitten or stung by nonvenomous insect and other nonvenomous arthropods, initial encounter; Z79.899 Other long term (current) drug therapy
CPT/HCPCS: 36415; 80076; 85025; 86618; 86666; 86753; 99283; A9270

== ENCOUNTER 2019-03-28 02:39 | Emergency (ER) | payer MEDICAID ==
[2019-03-28] MEDS ORDERED: methylPREDNISolone Sodium Succinate 125 MG/2 ML SDV IM ONE (03:08)
[2019-03-28] MEDS ORDERED: diphenhydrAMINE 25 MG Cap PO ONE (03:08)
[2019-03-28 03:10] VITALS: BP 180/102; PULSE 180
--- NOTE | 2019-03-28 03:14 | EDM.PDOC ---
ED HPI GENERAL MEDICAL PROBLEM - General Chief Complaint: General Stated Complaint: REACTION Time Seen by Provider: 03/28/19 03:09 Source of Information: Reports: Patient History Limitations: Reports: No Limitations - History of Present Illness INITIAL COMMENTS - FREE TEXT/NARRATIVE: pt has a swollen tongue. He can not think of anything different that he did. He did smoke marajauna. He has been very anxious and because of that he has not been able to work at [employer] for the past 2 days. He has had the swelling in the past. He thinks it has been years since this happened. Onset: Today, Sudden Duration: Hour(s): Location: Reports: Face, Other ( pt has a swollen tongue. ) Associated Symptoms: Reports: No Other Symptoms, Other (he does not have shortness of breath. ) Oral/Mouth Pain Score (Numeric/FACES): 5 - Related Data Allergies Allergy/AdvReac Type Severity Reaction Status Date / Time No Known Allergies Allergy Verified 03/28/19 02:44 Home Meds: Home Meds NK [No Known Home Meds] 03/28/19 [History] Past Medical History HEENT History: Reports: Other (See Below) Other HEENT History: Dental caries Cardiovascular History: Reports: Hypertension Musculoskeletal History: Reports: Fracture Psychiatric History: Reports: Anxiety, Depression - Infectious Disease History Infectious Disease History: Reports: Mumps - Past Surgical History HEENT Surgical History: Reports: Eye Surgery Social & Family History - Family History Family Medical History: Unobtainable - Tobacco Use Smoking Status *Q: Current Every Day Smoker Years of Tobacco use: 10 Packs/Tins Daily: 0.5 Used Tobacco, but Quit: No Second Hand Smoke Exposure: Yes - Caffeine Use Caffeine Use: Reports: Coffee, Soda - Alcohol Use Days Per Week of Alcohol Use: 2 Number of Drinks Per Day: 4 Total Drinks Per Week: 8 - Recreational Drug Use Recreational Drug Use: Yes Drug Use in Last 12 Months: No Recreational Drug Type: Reports: Marijuana/Hashish Recreational Drug Use Frequency: Monthly ED ROS GENERAL - Review of Systems Review Of Systems: See Below Constitutional: Reports: No Symptoms HEENT: Reports: Other ( tongue is markedly swollen. ) Respiratory: Reports: No Symptoms Cardiovascular: Reports: No Symptoms Endocrine: Reports: No Symptoms GI/Abdominal: Reports: No Symptoms : Reports: No Symptoms Musculoskeletal: Reports: No Symptoms Skin: Reports: No Symptoms ED EXAM, GENERAL - Physical Exam Exam: See Below Free Text/Narrative:: pt arrived with swelling of his tongue. He is not sob or wheezy. He is not on meds regularly. He usually takes benadryl daily and he has been out for the past 2 days. Exam Limited By: No Limitations General Appearance: Alert, Anxious, Mild Distress Ears: Normal TMs Nose: Normal Inspection Throat/Mouth: Other ( tongue is sig swelling. ) Head: Atraumatic Neck: Normal Inspection Respiratory/Chest: No Respiratory Distress Cardiovascular: Regular Rate, Rhythm GI/Abdominal: Soft, Non-Tender (Male) Exam: Deferred Rectal (Males) Exam: Deferred Back Exam: Normal Inspection Extremities: Normal Inspection Course - Vital Signs Last Recorded V/S: Last Vital Signs Temp 35.5 C 03/28/19 03:58 Pulse 180 H 03/28/19 02:55 Resp 16 03/28/19 03:58 BP 180/102 H 03/28/19 02:55 Pulse Ox 96 03/28/19 03:58 - Orders/Labs/Meds Meds: Medications Discontinued Medications Generic Name Dose Route Start Last Admin Trade Name Freq PRN Reason Stop Dose Admin Diphenhydramine HCl 50 mg 03/28/19 03:08 03/28/19 03:14 Benadryl PO 03/28/19 03:09 50 mg ONETIME ONE Administration Lorazepam 0.5 mg 03/28/19 03:15 03/28/19 03:20 Ativan PO 03/28/19 03:16 0.5 mg ONETIME ONE Administration Methylprednisolone Sodium Succinate 125 mg 03/28/19 03:08 03/28/19 03:14 Solu-Medrol IM 03/28/19 03:09 125 mg ONETIME ONE Administration - Re-Assessments/Exams Free Text/Narrative Re-Assessment/Exam: 03/28/19 03:15 pt was given benadryl 50 mg and solumedrol 125. ativan .5. Departure - Departure Time of Disposition: 03:55 Disposition: Home, Self-Care 01 Condition: Fair Clinical Impression: Tongue swelling - Discharge Information Instructions: Angioedema, [id number] Referrals: Yvonne Ureña MD [Primary Care Provider] - Forms: ED Department Discharge Care Plan Goals: tAKE Benadrly 1 or 2 tabs every 6 hours as needed
[2019-03-28] MEDS ORDERED: LORazepam 0.5 MG Tab PO ONE (03:15)
== END 2019-03-28 03:59 | disposition home or self-care (01) ==
LOC: JP.ED 02:39
DX: K14.8 Other diseases of tongue (principal); I10 Essential (primary) hypertension; F17.210 Nicotine dependence, cigarettes, uncomplicated
CPT/HCPCS: 96372; 99283; A9270; J2930

== ENCOUNTER 2019-04-26 14:20 | Emergency (ER) | payer MEDICAID ==
[2019-04-26 15:42] VITALS: BP 130/77; PULSE 63
--- NOTE | 2019-04-26 16:22 | EDM.PDOC ---
ED HPI GENERAL MEDICAL PROBLEM - General Chief Complaint: Skin Complaint Stated Complaint: CYST IN GROIN AREA Time Seen by Provider: 04/26/19 16:00 Source of Information: Reports: Patient History Limitations: Reports: No Limitations - History of Present Illness INITIAL COMMENTS - FREE TEXT/NARRATIVE: Wood is a 53 year old male, presents to the ED today with c/o left groin lump, seen in clinic on the , groin abscess was I and D and he was started on antibiotics, was not improve so switched to Augmentin 3 days ago, still concerned today he has a lump. Patient denies any fever/chills/nausea/ vomiting. Patient denies any other complaints today. Onset: Gradual - Related Data Allergies Allergy/AdvReac Type Severity Reaction Status Date / Time No Known Allergies Allergy Verified 03/28/19 02:44 Home Meds: Home Meds NK [No Known Home Meds] 03/28/19 [History] Past Medical History HEENT History: Reports: Other (See Below) Other HEENT History: Dental caries Cardiovascular History: Reports: Hypertension Musculoskeletal History: Reports: Fracture Psychiatric History: Reports: Anxiety, Depression - Infectious Disease History Infectious Disease History: Reports: Mumps - Past Surgical History HEENT Surgical History: Reports: Eye Surgery Social & Family History - Family History Family Medical History: Unobtainable - Tobacco Use Smoking Status *Q: Never Smoker - Caffeine Use Caffeine Use: Reports: Coffee, Soda ED ROS GENERAL - Review of Systems Review Of Systems: ROS reveals no pertinent complaints other than HPI. ED EXAM, SKIN/RASH Exam: See Below Exam Limited By: No Limitations General Appearance: Alert, WD/WN, No Apparent Distress Neck: Normal Inspection Respiratory/Chest: No Respiratory Distress, Lungs Clear Cardiovascular: Normal Peripheral Pulses, Regular Rate, Rhythm Extremities: Normal Inspection Neurological: Alert, Oriented, CN II-XII Intact Psychiatric: Normal Affect, Normal Mood Skin: Warm, Dry, Intact Lymphatic: No Adenopathy Comments: induration noted to left groin where prior abscess had been I and D'd. No erythema, abscess formation, no warmth, no lymphadenopathy Course - Vital Signs Last Recorded V/S: Last Vital Signs Temp 36.6 C 04/26/19 16:14 Pulse 63 04/26/19 16:14 Resp 16 04/26/19 16:14 BP 130/77 04/26/19 16:14 Pulse Ox 96 09/28/19 16:14 Wood is a 53 year old male, presents to the ED today with concerns over left groin abscess. Please refer to HPI and focused exam. Patient's exam is very reassuring, he was reassured all is healing well with no fluctuance or surrounding erythema, warmth, no lymphadenopathy, some induration to be expected with healing process. Patient encouraged to continue and finish his Augmentin, Ibuprofen as needed. Reasons to return to the ED discussed, patient agreeable and discharged in stable condition. - Orders/Labs/Meds Orders: Active Orders 24 hr Category Date Time Status TROPONIN I [CHEM] Routine Lab 04/26/19 17:00 Stop Req Departure - Departure Time of Disposition: 16:30 Disposition: Home, Self-Care 01 Condition: Good Clinical Impression: Abscess - Discharge Information Instructions: Skin Abscess Referrals: Yvonne Ureña MD [Primary Care Provider] - Additional Instructions: Wood, this is healing and does not require any additional procedure at this time. Finish the Augmentin, you can take 600 mg of IBuprofen every 6 hours as needed for pain. - My Orders Last 24 Hours: My Active Orders 04/26/19 17:00 TROPONIN I [CHEM] Routine - Assessment/Plan Last 24 Hours: My Active Orders 04/26/19 17:00 TROPONIN I [CHEM] Routine
== END 2019-04-26 16:29 | disposition home or self-care (01) ==
LOC: JP.ED 14:20
DX: L02.214 Cutaneous abscess of groin (principal); I10 Essential (primary) hypertension
CPT/HCPCS: 99282

== ENCOUNTER 2019-05-27 05:28 | Emergency (ER) | payer MEDICAID ==
[2019-05-27] MEDS ORDERED: predniSONE 20 MG Tab PO ONE (05:47)
[2019-05-27] MEDS ORDERED: diphenhydrAMINE 25 MG Cap PO ONE ×2 (05:47→06:53)
[2019-05-27] MEDS: Famotidine 20 MG Tab ONE ×2 (05:52→05:54)
--- NOTE | 2019-05-27 05:53 | EDM.PDOC ---
<MeronNicolas G - Last Filed: 05/27/19 06:54> ED HPI GENERAL MEDICAL PROBLEM - General Chief Complaint: Allergic Reaction Stated Complaint: REACTION Time Seen by Provider: 05/27/19 05:40 Source of Information: Reports: Patient History Limitations: Reports: No Limitations - History of Present Illness INITIAL COMMENTS - FREE TEXT/NARRATIVE: 53 yo male walked here this morning from his apartment for what he believes to be an allergic reaction. He noted some tongue and minor throat swelling. He denies itching. He took Benedryl 50 mg po before arrival. Denies SOB. Is on only Paxil and prn ibuprofen for meds. Ate a hamburger bun and equatorial guine[place] fries before bedtime. Has a pHx of a prior allergic reaction the cause of which was never clarified. Onset: Today Onset Date: 05/27/19 Onset Time: 04:30 Duration: Hour(s): (1), Constant Location: Reports: Neck (mouth, throat) Quality: Reports: Other (fullness) Severity: Mild Improves with: Reports: None Worsens with: Reports: Other (unknown) Context: Reports: Other (See HPI) Associated Symptoms: Reports: No Other Symptoms Treatments JOB ANALYSIS MANAGER: Reports: Other Medication(s) Other Treatments JOB ANALYSIS MANAGER: 50 mg Benadryl - Related Data Allergies Allergy/AdvReac Type Severity Reaction Status Date / Time No Known Allergies Allergy Verified 03/28/19 02:44 Home Meds: Home Meds Ibuprofen 800 mg PO DAILY 05/27/19 [History] PARoxetine [Paxil] 10 mg PO DAILY 05/27/19 [History] Past Medical History HEENT History: Reports: Other (See Below) Other HEENT History: Dental caries Cardiovascular History: Reports: Hypertension Musculoskeletal History: Reports: Fracture Psychiatric History: Reports: Anxiety, Depression - Infectious Disease History Infectious Disease History: Reports: Mumps - Past Surgical History HEENT Surgical History: Reports: Eye Surgery Social & Family History - Family History Family Medical History: Unobtainable - Tobacco Use Smoking Status *Q: Current Every Day Smoker Years of Tobacco use: 35 Packs/Tins Daily: 0.2 - Caffeine Use Caffeine Use: Reports: Coffee, Soda - Alcohol Use Days Per Week of Alcohol Use: 4 Number of Drinks Per Day: 4 Total Drinks Per Week: 16 - Recreational Drug Use Recreational Drug Use: Yes Drug Use in Last 12 Months: Yes Recreational Drug Type: Reports: Marijuana/Hashish ED ROS ALLERGIC REACTION - Review of Systems Review Of Systems: ROS reveals no pertinent complaints other than HPI. Constitutional: Reports: No Symptoms HEENT: Reports: Throat Swelling (subjective), Other (tongue swelling, early) Respiratory: Reports: No Symptoms Cardiovascular: Reports: No Symptoms Skin: Reports: No Symptoms ED EXAM GENERAL NO PERIP PULSE - Physical Exam Exam: See Below Exam Limited By: No Limitations General Appearance: Alert, WD/WN, No Apparent Distress Eye Exam: Bilateral Eye: Normal Inspection Ears: Normal External Exam, Normal Canal, Hearing Grossly Normal, Normal TMs Nose: Normal Inspection, No Blood Throat/Mouth: Normal Inspection, Normal Lips, Normal Oropharynx, Normal Voice, No Airway Compromise Head: Atraumatic, Normocephalic Neck: Normal Inspection Respiratory/Chest: No Respiratory Distress, Lungs Clear, Normal Breath Sounds, No Accessory Muscle Use Cardiovascular: Regular Rate, Rhythm, No Edema Extremities: Normal Inspection, Normal Range of Motion, Non-Tender, No Pedal Edema Neurological: Alert, Oriented, CN II-XII Intact, Normal Cognition Psychiatric: Normal Affect, Normal Mood Skin Exam: Warm, Dry, Intact, Normal Color, No Rash Course - Vital Signs Last Recorded V/S: Last Vital Signs Temp 36.3 C 05/27/19 05:44 Pulse 59 L 05/27/19 06:00 Resp 16 05/27/19 06:00 BP 127/77 05/27/19 06:00 Pulse Ox 94 L 05/27/19 06:00 - Orders/Labs/Meds Meds: Medications Discontinued Medications Generic Name Dose Route Start Last Admin Trade Name Ro PRN Reason Stop Dose Admin Diphenhydramine HCl 25 mg 05/27/19 05:47 05/27/19 05:51 Benadryl PO 05/27/19 05:48 25 mg ONETIME ONE Administration Diphenhydramine HCl 25 mg 05/27/19 06:53 05/27/19 07:02 Benadryl PO 05/27/19 06:54 25 mg ONETIME ONE Administration Famotidine Confirm 05/27/19 05:39 05/27/19 05:54 Pepcid Administered 05/27/19 05:40 Not Given Dose 40 mg .ROUTE .STK-MED ONE Famotidine 40 mg 05/27/19 05:54 05/27/19 05:50 Pepcid PO 05/27/19 05:55 40 mg ONETIME ONE Administration Methylprednisolone Sodium Succinate 125 mg 05/27/19 08:05 05/27/19 08:12 Solu-Medrol IVPUSH 05/27/19 08:06 125 mg ONETIME ONE Administration Prednisone 40 mg 05/27/19 05:47 05/27/19 05:52 Prednisone PO 05/27/19 05:48 40 mg ONETIME ONE Administration - Re-Assessments/Exams Free Text/Narrative Re-Assessment/Exam: 05/27/19 06:54 Does not feel any better, will give another 25 mg of diphenhydramine. Will need to watch him longer in the ER before determining his disposition. Departure - Departure Disposition: Home, Self-Care 01 Clinical Impression: Allergic reaction - Discharge Information Referrals: PCP,None [Primary Care Provider] - Forms: ED Department Discharge Care Plan Goals: pt should use benadryl 50 mg po q6h for the next 24 hours, cool pack the left facial area. <Neema Luna - Last Filed: 05/27/19 09:08> Course - Re-Assessments/Exams Free Text/Narrative Re-Assessment/Exam: 05/27/19 08:26 PT WAS REASSED AND HE CONTINUED TO SOUND FULL. hE HAD ALOT OF SWELLING ON THE LEFT SIDE OF HIS FACE. hE DID NOT HAVE SIG RESP DISTRESS. hE STILL DID NOT HAVE ANY HIVES hE WAS GIVEN SOLUMEDROL 125 IV PUSH. . 05/27/19 08:27 05/27/19 09:03 pt is looking better and he is not feeling nearly as tight in the throat. Will discharge using benadryl. Departure - Departure Time of Disposition: 09:07 Condition: Fair
[2019-05-27] MEDS ORDERED: Famotidine 20 MG Tab PO ONE (05:54)
[2019-05-27] MEDS ORDERED: methylPREDNISolone Sodium Succinate 125 MG/2 ML SDV IVPUSH ONE (08:05)
[2019-05-27 09:17] VITALS: BP 129/80; PULSE 64
== END 2019-05-27 09:17 | disposition home or self-care (01) ==
LOC: JP.ED 05:28
DX: T78.40XA Allergy, unspecified, initial encounter (principal); R22.0 Localized swelling, mass and lump, head; I10 Essential (primary) hypertension; F41.9 Anxiety disorder, unspecified; F32.9 Major depressive disorder, single episode, unspecified; F17.210 Nicotine dependence, cigarettes, uncomplicated; Z79.899 Other long term (current) drug therapy
CPT/HCPCS: 96374; 99283; A9270; J2930

== ENCOUNTER 2019-08-01 11:10 | Emergency (ER) | payer MEDICAID ==
[2019-08-01 11:57] VITALS: BP 142/96; PULSE 80
[2019-08-01] MEDS ORDERED: PARoxetine 20 MG Tab PO ONE (12:38)
[2019-08-01] MEDS ORDERED: diphenhydrAMINE 25 MG Cap PO ONE (12:39)
[2019-08-01] MEDS ORDERED: Atropine/Diphenoxylate 0.025-2.5 MG Tab PO ONE (12:57)
--- NOTE | 2019-08-01 13:03 | EDM.PDOCBH ---
<Nicolas Chance G - Last Filed: 08/01/19 13:47> ED HPI GENERAL MEDICAL PROBLEM - General Chief Complaint: Behavioral/Psych Stated Complaint: EVAL Time Seen by Provider: 08/01/19 12:45 Source of Information: Reports: Patient, Old Records, RN History Limitations: Reports: No Limitations - History of Present Illness INITIAL COMMENTS - FREE TEXT/NARRATIVE: 53 yo male here via police after he called them stating he was suicidal. He has not done anything to harm himself. Did have vodka to drink today. Has been off his antidepressants for about a month. Does have loose stools currently. Onset: Gradual Duration: Day(s):, Getting Worse Location: Reports: Generalized Quality: Reports: Other (no pain) Severity: Moderate Improves with: Reports: Medication Worsens with: Reports: Other (ETOH and being off his meds.) Context: Reports: Other (See HPI) Associated Symptoms: Reports: Other (diarrhea) Treatments FLAVORER: Reports: Other (see below) (none) - Related Data Allergies Allergy/AdvReac Type Severity Reaction Status Date / Time No Known Allergies Allergy Verified 08/01/19 12:26 Home Meds: Home Meds Ibuprofen 800 mg PO DAILY 05/27/19 [History] PARoxetine [Paxil] 10 mg PO DAILY 05/27/19 [History] Loratadine 10 mg PO DAILY PRN 08/01/19 [History] Past Medical History HEENT History: Reports: Other (See Below) Other HEENT History: Dental caries Cardiovascular History: Reports: Hypertension Musculoskeletal History: Reports: Fracture Neurological History: Reports: Headaches, Chronic, Head Trauma Psychiatric History: Reports: Anxiety, Bipolar, Depression - Infectious Disease History Infectious Disease History: Reports: Mumps - Past Surgical History HEENT Surgical History: Reports: Eye Surgery Social & Family History - Family History Family Medical History: Unobtainable - Tobacco Use Smoking Status *Q: Current Every Day Smoker Years of Tobacco use: 40 Packs/Tins Daily: 0.5 Second Hand Smoke Exposure: No - Caffeine Use Caffeine Use: Reports: Coffee, Soda Other Caffeine Use: mountain dew and pepsi every day cans per day. coffee in the morning 5 per day. - Alcohol Use Days Per Week of Alcohol Use: 7 Number of Drinks Per Day: 10 Total Drinks Per Week: 70 Date of Last Drink: 08/01/19 Time of Last Drink: 10:00 - Recreational Drug Use Recreational Drug Use: Yes Recreational Drug Type: Reports: Marijuana/Hashish ED ROS GENERAL - Review of Systems Review Of Systems: See Below Constitutional: Reports: No Symptoms HEENT: Reports: No Symptoms Respiratory: Reports: No Symptoms Cardiovascular: Reports: No Symptoms GI/Abdominal: Reports: Diarrhea. Denies: Abdominal Pain, Black Stool, Bloody Stool, Constipation, Distension, Flatus, Hematemesis, Hematochezia, Melena, Nausea, Vomiting : Reports: No Symptoms Musculoskeletal: Reports: No Symptoms Skin: Reports: No Symptoms Neurological: Reports: No Symptoms Psychiatric: Reports: Depression ED EXAM, BEHAVIORAL HEALTH - Physical Exam Exam: See Below Exam Limited By: No Limitations General Appearance: Alert, WD/WN, No Apparent Distress Eye Exam: Bilateral Eye: Normal Inspection Ears: Normal External Exam, Normal Canal, Hearing Grossly Normal, Normal TMs Nose: Normal Inspection, No Blood Throat/Mouth: Normal Inspection, Normal Lips, Normal Oropharynx, Normal Voice, No Airway Compromise Head: Atraumatic, Normocephalic Neck: Normal Inspection, Non-Tender Respiratory/Chest: No Respiratory Distress, Lungs Clear, Normal Breath Sounds, No Accessory Muscle Use Cardiovascular: Regular Rate, Rhythm, No Edema GI/Abdominal: Normal Bowel Sounds, Soft, Non-Tender, No Distention Back Exam: Normal Inspection. No: CVA Tenderness (R), CVA Tenderness (L) Extremities: Normal Inspection, Normal Range of Motion, Non-Tender, No Pedal Edema Neurological: Alert, Normal Mood/Affect, CN II-XII Intact, Normal Cognition, No Motor/Sensory Deficits, Oriented x 3, Other (alcohol intoxication) Psychiatric: Alert, Normal Affect, Normal Cognition, Normal Mood, Oriented, Homicidal Thoughts, Suicidal Thoughts Skin Exam: Warm, Dry, Intact, Normal color, No rash COURSE, BEHAVIORAL HEALTH COMP - Course Vital Signs: Last Vital Signs Temp 97.4 F 08/01/19 12:35 Pulse 80 08/01/19 12:35 Resp 16 08/01/19 12:35 BP 142/96 H 08/01/19 12:35 Pulse Ox 95 08/01/19 12:35 Orders, Labs, Meds: Laboratory Tests 08/01/19 08/01/19 08/01/19 Range/Units 12:39 12:39 12:45 WBC 6.0 (4.5-11.0) K/uL RBC 4.94 (4.30-5.90) M/uL Hgb 16.3 H (12.0-15.0) g/dL Hct 48.9 (40.0-54.0) % MCV 99 H (80-98) fL MCH 33 H (27-31) pg MCHC 33 (32-36) % Plt Count 225 (150-400) K/uL Sodium (140-148) mmol/L Potassium (3.6-5.2) mmol/L Chloride (100-108) mmol/L Carbon Dioxide (21-32) mmol/L Anion Gap (5.0-14.0) mmol/L BUN (7-18) mg/dL Creatinine (0.8-1.3) mg/dL Est Cr Clr Drug Dosing mL/min Estimated GFR (MDRD) (>60) Glucose (74-106) mg/dL Calcium (8.5-10.1) mg/dL TSH, Ultra Sensitive (0.358-3.740) uIU/mL Urine Color Yellow (YELLOW) Urine Appearance Clear (CLEAR) Urine pH 5.5 (5.0-8.0) Ur Specific [place] 1.010 (1.008-1.030) Urine Protein Negative (NEGATIVE) mg/dL Urine Glucose (UA) Negative (NEGATIVE) mg/dL Urine Ketones Negative (NEGATIVE) mg/dL Urine Occult Blood Negative (NEGATIVE) Urine Nitrite Negative (NEGATIVE) Urine Bilirubin Negative (NEGATIVE) Urine Urobilinogen 0.2 (0.2-1.0) EU/dL Ur Leukocyte Esterase Negative (NEGATIVE) Urine RBC 0-5 (0-5) Urine WBC 0-5 (0-5) Ur Epithelial Cells Few Amorphous Sediment Not seen Urine Bacteria Few Urine Mucus Not seen Urine Opiates Screen Negative (NEGATIVE) Ur Oxycodone Screen Negative (NEGATIVE) Urine Methadone Screen Negative (NEGATIVE) Ur Propoxyphene Screen Negative (NEGATIVE) Ur Barbiturates Screen Negative (NEGATIVE) Ur Tricyclics Screen Negative (NEGATIVE) Ur Phencyclidine Scrn Negative (NEGATIVE) Ur Amphetamine Screen Negative (NEGATIVE) U Methamphetamines Scrn Negative (NEGATIVE) Urine MDMA Screen Negative (NEGATIVE) U Benzodiazepines Scrn Negative (NEGATIVE) U Cocaine Metab Screen Negative (NEGATIVE) U Marijuana (THC) Screen Negative (NEGATIVE) Ethyl Alcohol mg/dL 08/01/19 08/01/19 Range/Units 12:45 12:45 WBC (4.5-11.0) K/uL RBC (4.30-5.90) M/uL Hgb (12.0-15.0) g/dL Hct (40.0-54.0) % MCV (80-98) fL MCH (27-31) pg MCHC (32-36) % Plt Count (150-400) K/uL Sodium 142 (140-148) mmol/L Potassium 4.4 (3.6-5.2) mmol/L Chloride 104 (100-108) mmol/L Carbon Dioxide 25 (21-32) mmol/L Anion Gap 12.9 (5.0-14.0) mmol/L BUN 11 (7-18) mg/dL Creatinine 0.9 (0.8-1.3) mg/dL Est Cr Clr Drug Dosing 96.88 mL/min Estimated GFR (MDRD) > 60 (>60) Glucose 95 (74-106) mg/dL Calcium 8.4 L (8.5-10.1) mg/dL TSH, Ultra Sensitive 0.963 (0.358-3.740) uIU/mL Urine Color (YELLOW) Urine Appearance (CLEAR) Urine pH (5.0-8.0) Ur Specific [place] (1.008-1.030) Urine Protein (NEGATIVE) mg/dL Urine Glucose (UA) (NEGATIVE) mg/dL Urine Ketones (NEGATIVE) mg/dL Urine Occult Blood (NEGATIVE) Urine Nitrite (NEGATIVE) Urine Bilirubin (NEGATIVE) Urine Urobilinogen (0.2-1.0) EU/dL Ur Leukocyte Esterase (NEGATIVE) Urine RBC (0-5) Urine WBC (0-5) Ur Epithelial Cells Amorphous Sediment Urine Bacteria Urine Mucus Urine Opiates Screen (NEGATIVE) Ur Oxycodone Screen (NEGATIVE) Urine Methadone Screen (NEGATIVE) Ur Propoxyphene Screen (NEGATIVE) Ur Barbiturates Screen (NEGATIVE) Ur Tricyclics Screen (NEGATIVE) Ur Phencyclidine Scrn (NEGATIVE) Ur Amphetamine Screen (NEGATIVE) U Methamphetamines Scrn (NEGATIVE) Urine MDMA Screen (NEGATIVE) U Benzodiazepines Scrn (NEGATIVE) U Cocaine Metab Screen (NEGATIVE) U Marijuana (THC) Screen (NEGATIVE) Ethyl Alcohol 299 mg/dL Medications Discontinued Medications Generic Name Dose Route Start Last Admin Trade Name Ro PRN Reason Stop Dose Admin Diphenhydramine HCl 50 mg 08/01/19 12:39 08/01/19 13:11 Benadryl PO 08/01/19 12:40 50 mg ONETIME ONE Administration Diphenoxylate HCl/Atropine 1 tab 08/01/19 12:57 08/01/19 13:15 Lomotil 0.025-2.5 Mg PO 08/01/19 12:58 1 tab ONETIME ONE Administration Paroxetine HCl 20 mg 08/01/19 12:38 08/01/19 13:14 Paxil PO 08/01/19 12:39 20 mg ONETIME ONE Administration Thiamine HCl 100 mg 08/01/19 13:04 08/01/19 13:17 Vitamin B-1 PO 08/01/19 13:05 100 mg ONETIME ONE Administration Departure - Departure Disposition: Home, Self-Care 01 Condition: Fair Clinical Impression: Alcohol abuse, Suicidal ideation, Medical non-compliance Alcohol intoxication Qualifiers: Complication of substance-induced condition: with unspecified complication Qualified Code(s): F10.929 - Alcohol use, unspecified with intoxication, unspecified Depression Qualifiers: Depression Type: major depressive disorder Major depression recurrence: recurrent Active/Remission status: currently active Major depression episode severity: severe Psychotic features: without psychotic features Qualified Code(s ): F33.2 - Major depressive disorder, recurrent severe without psychotic features - Discharge Information *PRESCRIPTION DRUG MONITORING PROGRAM REVIEWED*: No *COPY OF PRESCRIPTION DRUG MONITORING REPORT IN PATIENT MATTHEW: No Instructions: Alcohol Intoxication, [id number] Referrals: PCP,None [Primary Care Provider] - Forms: ED Department Discharge Care Plan Goals: Avoid heavy alcohol use in the future and follow-up with your primary providers as scheduled. Sepsis Event Note - Evaluation Sepsis Screening Result: No Definite Risk - Focused Exam Vital Signs: Vital Signs Temp Pulse Resp BP Pulse Ox 08/01/19 12:35 97.4 F 80 16 142/96 H 95 08/01/19 11:56 97.4 F 80 16 142/96 H 95 Date Exam was Performed: 08/01/19 Time Exam was Performed: 13:47 <Gerson Capps - Last Filed: 08/01/19 21:58> COURSE, BEHAVIORAL HEALTH COMP - Course Re-Assessment/Re-Exam: After the patient sobered up and had a complete psychiatric evaluation, he was deemed safe to go home and no longer felt suicidal or homicidal. He has outpatient psychiatric follow-up scheduled and will keep his appointments. Departure - Departure Time of Disposition: 21:41 Sepsis Event Note - Focused Exam Date Exam was Performed: 08/01/19 Time Exam was Performed: 21:57
[2019-08-01] MEDS ORDERED: Thiamine 100 MG Tab PO ONE (13:04)
== END 2019-08-01 21:42 | disposition home or self-care (01) ==
LOC: JP.ED 11:10
DX: F33.2 Major depressive disorder, recurrent severe without psychotic features (principal); F10.129 Alcohol abuse with intoxication, unspecified; I10 Essential (primary) hypertension; F17.210 Nicotine dependence, cigarettes, uncomplicated; Z91.14 Patient's other noncompliance with medication regimen
CPT/HCPCS: 36415; 80048; 80305; 80320; 81001; 84443; 85027; 99285; A9270; G0480

== ENCOUNTER 2019-10-04 06:12 | Emergency (ER) | payer MEDICAID ==
[2019-10-04] MEDS ORDERED: diphenhydrAMINE 25 MG Cap PO ONE (06:22)
[2019-10-04 06:28] VITALS: BP 144/95; PULSE 87
[2019-10-04] MEDS ORDERED: diphenhydrAMINE 50 MG/ML SDV IM ONE (06:30)
[2019-10-04] MEDS ORDERED: LORazepam 2 MG/ML SDV IM ONE (06:35)
[2019-10-04] MEDS ORDERED: methylPREDNISolone Sodium Succinate 40 MG/1 ML SDV IM ONE (06:35)
--- NOTE | 2019-10-04 06:36 | EDM.PDOC ---
<OfficerDarrel - Last Filed: 10/04/19 06:31> ED HPI GENERAL MEDICAL PROBLEM - General Chief Complaint: Allergic Reaction Stated Complaint: ALLERGIC REACTION Time Seen by Provider: 10/04/19 06:30 Source of Information: Reports: Patient, Old Records, RN Notes Reviewed History Limitations: Reports: No Limitations - History of Present Illness INITIAL COMMENTS - FREE TEXT/NARRATIVE: 53-year-old gentleman presents emergency department a complaint of tongue swelling. He has been to the emergency department multiple times for tongue swelling usually controls this with Benadryl unfortunately he has been out of this medication he states he has had a work-up for his tongue swelling but no etiology has been found. He has no difficulty breathing at this time no difficulty swallowing he is quite anxious - Related Data Allergies Allergy/AdvReac Type Severity Reaction Status Date / Time No Known Allergies Allergy Verified 10/04/19 06:23 Home Meds: Home Meds Ibuprofen 800 mg PO DAILY 05/27/19 [History] PARoxetine [Paxil] 10 mg PO DAILY 05/27/19 [History] Loratadine 10 mg PO DAILY PRN 08/01/19 [History] diphenhydrAMINE HCl [Benadryl] 25 mg PO DAILY 10/04/19 [History] Past Medical History HEENT History: Reports: Other (See Below) Other HEENT History: Dental caries Cardiovascular History: Reports: Hypertension Musculoskeletal History: Reports: Fracture Neurological History: Reports: Headaches, Chronic, Head Trauma Psychiatric History: Reports: Anxiety, Bipolar, Depression - Infectious Disease History Infectious Disease History: Reports: Mumps - Past Surgical History HEENT Surgical History: Reports: Eye Surgery Social & Family History - Family History Family Medical History: Unobtainable - Tobacco Use Smoking Status *Q: Current Every Day Smoker Years of Tobacco use: 35 Packs/Tins Daily: 0.5 - Caffeine Use Caffeine Use: Reports: Coffee, Soda Other Caffeine Use: mountain dew and pepsi every day cans per day. coffee in the morning 5 per day. - Alcohol Use Days Per Week of Alcohol Use: 5 Number of Drinks Per Day: 5 Total Drinks Per Week: 25 - Recreational Drug Use Recreational Drug Use: Yes Drug Use in Last 12 Months: Yes Recreational Drug Type: Reports: Marijuana/Hashish Recreational Drug Use Frequency: Daily ED ROS ALLERGIC REACTION - Review of Systems Review Of Systems: See Below Constitutional: Reports: No Symptoms HEENT: Reports: Other (Tongue swelling). Denies: Throat Swelling Respiratory: Reports: No Symptoms Cardiovascular: Reports: No Symptoms GI/Abdominal: Reports: No Symptoms ED EXAM GENERAL NO PERIP PULSE - Physical Exam Exam: See Below Exam Limited By: No Limitations General Appearance: Alert, Mild Distress Throat/Mouth: Normal Inspection, No Airway Compromise, Other (Right side of the tongue demonstrates edema) Neck: Normal Inspection, Supple, Non-Tender, Full Range of Motion Respiratory/Chest: No Respiratory Distress, Lungs Clear, Normal Breath Sounds, No Accessory Muscle Use, Chest Non-Tender Cardiovascular: Regular Rate, Rhythm, No Murmur Course - Vital Signs Last Recorded V/S: Last Vital Signs Temp 35.8 C L 10/04/19 06:27 Pulse 87 10/04/19 06:27 Resp 16 10/04/19 06:27 BP 144/95 H 10/04/19 06:27 Pulse Ox 95 10/04/19 06:27 - Orders/Labs/Meds Meds: Medications Discontinued Medications Generic Name Dose Route Start Last Admin Trade Name oR PRN Reason Stop Dose Admin Diphenhydramine HCl 50 mg 10/04/19 06:22 10/04/19 06:37 Benadryl PO 10/04/19 06:23 Not Given ONETIME ONE Diphenhydramine HCl 50 mg 10/04/19 06:30 10/04/19 06:35 Benadryl IM 10/04/19 06:31 50 mg ONETIME ONE Administration Famotidine 40 mg 10/04/19 07:45 10/04/19 07:50 Pepcid PO 10/04/19 07:46 40 mg ONETIME ONE Administration Lorazepam 1 mg 10/04/19 06:35 10/04/19 06:43 Ativan IM 10/04/19 06:36 1 mg ONETIME ONE Administration Methylprednisolone Sodium Succinate 40 mg 10/04/19 06:35 10/04/19 06:43 Solu-Medrol IM 10/04/19 06:36 40 mg ONETIME ONE Administration Departure - Departure Disposition: Home, Self-Care 01 Clinical Impression: Tongue swelling - Discharge Information Referrals: Yvonne Ureña MD [Primary Care Provider] - Forms: ED Department Discharge Additional Instructions: Resume taking diphenhydramine 50 mg every 4 hrs until your tongue swelling has resolved, then as previously directed. Return if worse. Sepsis Event Note - Evaluation Sepsis Screening Result: No Definite Risk - Focused Exam Vital Signs: Vital Signs Temp Pulse Resp BP Pulse Ox 10/04/19 06:27 35.8 C L 87 16 144/95 H 95 Date Exam was Performed: 10/04/19 Time Exam was Performed: 06:31 <Nicolas Chance G - Last Filed: 10/04/19 08:36> Course - Re-Assessments/Exams Free Text/Narrative Re-Assessment/Exam: 10/04/19 08:03 Sleeping peacefully. Departure - Departure Time of Disposition: 08:34 Condition: Fair - Discharge Information *PRESCRIPTION DRUG MONITORING PROGRAM REVIEWED*: No *COPY OF PRESCRIPTION DRUG MONITORING REPORT IN PATIENT MATTHEW: No Sepsis Event Note - Focused Exam Date Exam was Performed: 10/04/19 Time Exam was Performed: 08:34
[2019-10-04] MEDS ORDERED: Famotidine 20 MG Tab PO ONE (07:45)
== END 2019-10-04 08:41 | disposition home or self-care (01) ==
LOC: JP.ED 06:12
DX: K14.9 Disease of tongue, unspecified (principal); I10 Essential (primary) hypertension; F17.210 Nicotine dependence, cigarettes, uncomplicated; Z79.899 Other long term (current) drug therapy
CPT/HCPCS: 96372; 99283; A9270; J1200; J2060; J2920

== ENCOUNTER 2019-11-28 23:24 | Emergency (ER) | payer MEDICAID ==
[2019-11-28] MEDS ORDERED: Ketorolac 60 MG/2 ML SDV IM ONE (23:40)
[2019-11-28 23:41] VITALS: BP 151/98; PULSE 98
--- NOTE | 2019-11-28 23:44 | EDM.PDOC ---
ED HPI GENERAL MEDICAL PROBLEM - General Chief Complaint: Back Pain or Injury Stated Complaint: BACK PAIN,SOB Time Seen by Provider: 11/28/19 23:30 Source of Information: Reports: Patient History Limitations: Reports: No Limitations - History of Present Illness INITIAL COMMENTS - FREE TEXT/NARRATIVE: 53-year-old male arrives to the emergency room with ongoing back pain for the past 2 weeks. 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 He has no radiculopathy, no incontinence. Tonight it was bothering him so much that he walked to the emergency room to have it checked. He admits that he had at least a pint of alcohol this evening. This appears to be walking with some discomfort but does not appear to be weak or lack of coordination. He says it hurts so bad that it is "affecting his breathing". Onset: Unknown/Unsure (At least 2 weeks) Location: Reports: Back Improves with: Reports: None Worsens with: Reports: Breathing, Movement Associated Symptoms: Reports: No Other Symptoms Lower Back Pain Score (Numeric/FACES): 10 - Related Data Allergies Allergy/AdvReac Type Severity Reaction Status Date / Time No Known Allergies Allergy Verified 11/28/19 23:36 Home Meds: Home Meds Ibuprofen 800 mg PO DAILY 05/27/19 [History] PARoxetine [Paxil] 10 mg PO DAILY 05/27/19 [History] Loratadine 10 mg PO DAILY PRN 08/01/19 [History] diphenhydrAMINE HCL [Benadryl] 25 mg PO DAILY 10/04/19 [History] Past Medical History HEENT History: Reports: Other (See Below) Other HEENT History: Dental caries Cardiovascular History: Reports: Hypertension Musculoskeletal History: Reports: Fracture Neurological History: Reports: Headaches, Chronic, Head Trauma Psychiatric History: Reports: Anxiety, Bipolar, Depression - Infectious Disease History Infectious Disease History: Reports: Mumps - Past Surgical History HEENT Surgical History: Reports: Eye Surgery Social & Family History - Family History Family Medical History: Unobtainable - Caffeine Use Caffeine Use: Reports: Coffee, Soda Other Caffeine Use: mountain dew and pepsi every day cans per day. coffee in the morning 5 per day. ED ROS GENERAL - Review of Systems Review Of Systems: See Below Constitutional: Denies: Fever, Chills HEENT: Reports: No Symptoms Respiratory: Reports: Pleuritic Chest Pain Cardiovascular: Denies: Chest Pain GI/Abdominal: Denies: Abdominal Pain, Nausea, Vomiting Skin: Denies: Bruising Neurological: Denies: Headache Psychiatric: Reports: Other (Patient arrives fairly intoxicated) ED EXAM,LOWER BACK PAIN/INJURY - Physical Exam Exam: See Below Exam Limited By: Intoxication General Appearance: Alert, No Apparent Distress Head: Atraumatic Neck: Supple, Non-Tender Respiratory/Chest: No Respiratory Distress, Lungs Clear Back Exam: Paraspinal Tenderness, Other (His back is difficult to examine, he said his lower back hurts but when I started to palpate his upper thoracic and mid thoracic spine even with light palpation he spun away in horrible pain out of proportion to expectations. Same findings were of the LS spine, even light palpation of the paraspinous muscles caused him to wince away in pain and push away my hand) Neurological: Alert, No Motor/Sensory Deficits, Oriented x 3 Psychiatric: Other (Intoxicated) Skin Exam: Warm, Dry Course - Vital Signs Last Recorded V/S: Last Vital Signs Temp 95.9 F L 11/28/19 23:36 Pulse 98 11/28/19 23:36 Resp 18 11/28/19 23:36 BP 151/98 H 11/28/19 23:36 Pulse Ox 93 L 11/28/19 23:36 - Orders/Labs/Meds Meds: Medications Discontinued Medications Generic Name Dose Route Start Last Admin Trade Name Ro PRN Reason Stop Dose Admin Ketorolac Tromethamine 60 mg 11/28/19 23:40 11/28/19 23:45 Toradol IM 11/28/19 23:41 60 mg ONETIME ONE Administration - Re-Assessments/Exams Free Text/Narrative Re-Assessment/Exam: 11/28/19 23:47 Patient was given 1 60 mg injection of Toradol and 15 Flexeril to take no more than 3 a day and he was cautioned on mixing Flexeril and alcohol. He will recheck with his primary doctor next week if not improving. Departure - Departure Time of Disposition: 23:57 Disposition: Home, Self-Care 01 Clinical Impression: Strain of back Qualifiers: Encounter type: initial encounter Qualified Code(s): S39.012A - Strain of muscle, fascia and tendon of lower back, initial encounter - Discharge Information Instructions: Lumbosacral Strain Referrals: Yvonne Ureña MD [Primary Care Provider] - Forms: ED Department Discharge Care Plan Goals: Use up to 3 muscle relaxers a day, continue with ibuprofen and gentle stretching will be helpful. Increase activity as tolerated and recheck next week if not improving satisfactorily as you may need a physical therapy consultation or further imaging studies such as MRI. Sepsis Event Note - Focused Exam Vital Signs: Vital Signs Temp Pulse Resp BP Pulse Ox 11/28/19 23:36 95.9 F L 98 18 151/98 H 93 L Date Exam was Performed: 11/29/19 Time Exam was Performed: 00:12
== END 2019-11-28 23:57 | disposition home or self-care (01) ==
LOC: JP.ED 23:24
DX: S39.012A Strain of muscle, fascia and tendon of lower back, initial encounter (principal); I10 Essential (primary) hypertension; F41.9 Anxiety disorder, unspecified; F32.9 Major depressive disorder, single episode, unspecified; X50.9XXA Other and unspecified overexertion or strenuous movements or postures, initial encounter
CPT/HCPCS: 96372; 99283; J1885

== ENCOUNTER 2020-02-08 06:55 | Emergency (ER) | payer MEDICAID ==
[2020-02-08 07:15] VITALS: BP 184/81; PULSE 76
[2020-02-08] MEDS ORDERED: methylPREDNISolone Sodium Succinate 125 MG/2 ML SDV IM ONE (07:59)
[2020-02-08] MEDS ORDERED: diphenhydrAMINE 25 MG Cap PO ONE (08:00)
[2020-02-08] MEDS ORDERED: LORazepam 0.5 MG Tab PO ONE (08:01)
--- NOTE | 2020-02-08 08:01 | EDM.PDOC ---
ED HPI GENERAL MEDICAL PROBLEM - General Chief Complaint: ENT Problem Stated Complaint: ALLERGIC REACTION Time Seen by Provider: 02/08/20 07:56 Source of Information: Reports: Patient History Limitations: Reports: No Limitations - History of Present Illness INITIAL COMMENTS - FREE TEXT/NARRATIVE: pt arrived with swelling of one side of the tongue. While he was hre the tongue became much more swollen. He feels now like the saliva is not going down. he is all nervous regarding the covid test that is pending. He is on lisinopril which may be contributing to the tongue swelling. Onset: Today, Sudden Duration: Hour(s): Location: Reports: Face, Other (pt has swelling of his tongue. ) Associated Symptoms: Reports: Shortness of Breath, Other (pt is feeling very anxious. ) Oral/Mouth Pain Score (Numeric/FACES): 8 - Related Data Allergies Allergy/AdvReac Type Severity Reaction Status Date / Time No Known Allergies Allergy Verified 02/08/20 07:08 Home Meds: Home Meds Ibuprofen 800 mg PO DAILY 05/27/19 [History] PARoxetine [Paxil] 10 mg PO DAILY 05/27/19 [History] Loratadine 10 mg PO DAILY PRN 08/01/19 [History] diphenhydrAMINE HCL [Benadryl] 25 mg PO DAILY 10/04/19 [History] Folic Acid 1 mg PO DAILY 02/08/20 [History] Magnesium Oxide 400 mg PO DAILY 02/08/20 [History] SUMAtriptan [Imitrex] 50 mg PO Q2H PRN 02/08/20 [History] lisinopriL [Lisinopril] 5 mg PO DAILY 02/08/20 [History] Past Medical History HEENT History: Reports: Other (See Below) Other HEENT History: Dental caries Cardiovascular History: Reports: Hypertension Musculoskeletal History: Reports: Fracture Neurological History: Reports: Headaches, Chronic, Head Trauma Psychiatric History: Reports: Anxiety, Bipolar, Depression - Infectious Disease History Infectious Disease History: Reports: Mumps - Past Surgical History HEENT Surgical History: Reports: Eye Surgery Social & Family History - Family History Family Medical History: Unobtainable - Tobacco Use Smoking Status *Q: Current Every Day Smoker Years of Tobacco use: 35 Packs/Tins Daily: 0.2 - Caffeine Use Caffeine Use: Reports: Coffee, Soda Other Caffeine Use: mountain dew and pepsi every day cans per day. coffee in the morning 5 per day. - Alcohol Use Days Per Week of Alcohol Use: 7 Number of Drinks Per Day: 10 Total Drinks Per Week: 70 - Recreational Drug Use Recreational Drug Use: Yes Recreational Drug Type: Reports: Marijuana/Hashish Recreational Drug Use Frequency: Socially ED ROS ENT - Review of Systems Review Of Systems: See Below Constitutional: Reports: No Symptoms HEENT: Reports: Other (pt has marked swelling of the tongue. He is on lisinopril and according to the pt he has had swelling in the past. ) Respiratory: Reports: Other (pt is not labored with his breathing. ) Cardiovascular: Reports: No Symptoms Endocrine: Reports: No Symptoms GI/Abdominal: Reports: No Symptoms : Reports: No Symptoms Musculoskeletal: Reports: No Symptoms Skin: Reports: Other (pt is not having any hiving. ) Neurological: Reports: No Symptoms Psychiatric: Reports: Anxiety, Other (pt is very worried regarding his covid test that is pendiong preoperatively. ) ED EXAM, ENT - Physical Exam Exam: See Below Text/Narrative:: p arrived with swelling of the rt side of his tongue. This got alot worse in the next 15 minutes and this involved his entire tongue. He is on lisinopril . Exam Limited By: No Limitations General Appearance: Alert, Anxious Ears: Normal TMs Nose: Normal Inspection Mouth/Throat: Other ( he was given solumedrol, benadryl. He had some improvement with the 125 m dose. He was followed in 1.5 hours with another 60 mg of solumedrol. He has gotten alot better but he still has swelling. He will stop his lisinopril ) Course - Vital Signs Last Recorded V/S: Last Vital Signs Temp 36.1 C 02/08/20 07:15 Pulse 76 02/08/20 07:15 Resp 17 02/08/20 07:15 BP 184/81 H 02/08/20 07:15 Pulse Ox 99 02/08/20 07:15 - Orders/Labs/Meds Orders: Active Orders 24 hr Category Date Time Status Sodium Chloride 0.9% [Normal Saline] 1,000 ml Med 02/08/20 10:15 Active IV ASDIRECTED Medication Orders Sodium Chloride (Normal Saline) 1,000 mls @ 250 mls/hr IV ASDIRECTED CINDI Last Admin: 02/08/20 10:30 Dose: 250 mls/hr Documented by: MARGARITA Meds: Medications Generic Name Dose Route Start Last Admin Trade Name Ro PRN Reason Stop Dose Admin Sodium Chloride 1,000 mls @ 250 mls/hr 02/08/20 10:15 02/08/20 10:30 Normal Saline IV 250 mls/hr ASDIRECTED CINDI Administration Discontinued Medications Generic Name Dose Route Start Last Admin Trade Name Ro PRN Reason Stop Dose Admin Diphenhydramine HCl 25 mg 02/08/20 08:00 02/08/20 08:05 Benadryl PO 02/08/20 08:01 25 mg ONETIME ONE Administration Famotidine 20 mg 02/08/20 08:04 02/08/20 08:11 Pepcid PO 02/08/20 08:05 20 mg ONETIME ONE Administration Lorazepam 0.5 mg 02/08/20 08:01 02/08/20 08:11 Ativan PO 02/08/20 08:02 0.5 mg ONETIME ONE Administration Methylprednisolone Sodium Succinate 125 mg 02/08/20 07:59 02/08/20 08:05 Solu-Medrol IM 02/08/20 08:00 125 mg ONETIME ONE Administration Methylprednisolone Sodium Succinate 60 mg 02/08/20 10:10 02/08/20 10:31 Solu-Medrol IVPUSH 02/08/20 10:11 60 mg ONETIME ONE Administration Departure - Departure Time of Disposition: 13:06 Disposition: Home, Self-Care 01 Condition: Fair Clinical Impression: Angioedema - Discharge Information Referrals: Yvonne Ureña MD [Primary Care Provider] - Forms: ED Department Discharge Care Plan Goals: eat cool things today, benadryl 50 mg q6h rtc if swelling should continue to be a problem., stop lisinopril, replace with amlpdopine 5 mg daily, appt with Dr ureña in 1 week. Sepsis Event Note (ED) - Evaluation Sepsis Screening Result: No Definite Risk - Focused Exam Vital Signs: Vital Signs Temp Pulse Resp BP Pulse Ox 02/08/20 07:15 36.1 C 76 17 184/81 H 99 02/08/20 07:05 36.1 C 76 17 184/81 H 99 - My Orders Last 24 Hours: My Active Orders 02/08/20 10:15 Sodium Chloride 0.9% [Normal Saline] 1,000 ml IV ASDIRECTED - Assessment/Plan Last 24 Hours: My Active Orders 02/08/20 10:15 Sodium Chloride 0.9% [Normal Saline] 1,000 ml IV ASDIRECTED
[2020-02-08] MEDS ORDERED: Famotidine 20 MG Tab PO ONE (08:04)
[2020-02-08] MEDS ORDERED: methylPREDNISolone Sodium Succinate 40 MG/1 ML SDV IVPUSH ONE (10:10)
[2020-02-08] MEDS ORDERED: Sodium Chloride 0.9% 1,000 ML IV SCH (10:15)
== END 2020-02-08 13:24 | disposition home or self-care (01) ==
LOC: JP.ED 06:55
DX: T78.3XXA Angioneurotic edema, initial encounter (principal); F17.210 Nicotine dependence, cigarettes, uncomplicated; I10 Essential (primary) hypertension; F32.9 Major depressive disorder, single episode, unspecified; F41.9 Anxiety disorder, unspecified; Z79.899 Other long term (current) drug therapy
CPT/HCPCS: 96361; 96372; 96374; 99283; A9270; J2920; J2930; J7030

== ENCOUNTER 2020-05-02 09:35 | Emergency (ER) | payer MEDICAID ==
[2020-05-02 09:38] VITALS: BP 128/87; PULSE 62
[2020-05-02] MEDS ORDERED: Ketorolac 60 MG/2 ML SDV IM ONE (10:00)
--- NOTE | 2020-05-02 10:02 | EDM.PDOC ---
ED HPI GENERAL MEDICAL PROBLEM - General Chief Complaint: Drug or Alcohol Abuse Stated Complaint: TOO MUCH BOOZE Time Seen by Provider: 05/02/20 09:57 Source of Information: Reports: Patient, EMS, RN Notes Reviewed History Limitations: Reports: Intoxication - History of Present Illness INITIAL COMMENTS - FREE TEXT/NARRATIVE: 54-year-old gentleman presents emergency department a complaint of left shoulder pain he admits to consuming alcohol this last evening he fell while he was drinking fell on outstretched arm injuring his left shoulder he does have a history of shoulder surgery a couple of months ago. He can still move his arm but it is quite painful he denies any other injury. - Related Data Allergies Allergy/AdvReac Type Severity Reaction Status Date / Time No Known Allergies Allergy Verified 02/08/20 07:08 Home Meds: Home Meds PARoxetine [Paxil] 20 mg PO DAILY 05/27/19 [History] Loratadine 10 mg PO DAILY PRN 08/01/19 [History] diphenhydrAMINE HCL [Benadryl] 25 mg PO DAILY 10/04/19 [History] Folic Acid 1 mg PO DAILY 02/08/20 [History] Magnesium Oxide 400 mg PO DAILY 02/08/20 [History] amLODIPine [Norvasc] 5 mg PO DAILY 05/02/20 [History] Past Medical History HEENT History: Reports: Other (See Below) Other HEENT History: Dental caries Cardiovascular History: Reports: Hypertension Musculoskeletal History: Reports: Fracture Neurological History: Reports: Headaches, Chronic, Head Trauma Psychiatric History: Reports: Anxiety, Bipolar, Depression - Infectious Disease History Infectious Disease History: Reports: Mumps - Past Surgical History HEENT Surgical History: Reports: Eye Surgery Musculoskeletal Surgical History: Reports: Arthroscopic Procedure, Shoulder Surgery Other Musculoskeletal Surgeries/Procedures:: left shoulder Social & Family History - Family History Family Medical History: Unobtainable - Tobacco Use Smoking Status *Q: Current Every Day Smoker Years of Tobacco use: 40 Packs/Tins Daily: 1 Used Tobacco, but Quit: No - Caffeine Use Caffeine Use: Reports: Coffee Other Caffeine Use: mountain dew and pepsi every day cans per day. coffee in the morning 5 per day. - Alcohol Use Days Per Week of Alcohol Use: 7 Number of Drinks Per Day: 50 Total Drinks Per Week: 350 - Recreational Drug Use Recreational Drug Use: No Review of Systems - Review of Systems Review Of Systems: See Below Musculoskeletal: Reports: Shoulder Pain ED EXAM, GENERAL - Physical Exam Exam: See Below Free Text/Narrative:: Examination of the left shoulder and on appreciate any erythema there is no edema there is no obvious deformity he has limited range of motion he can do about 120 degrees of abduction before significant pain radial pulses +2 Exam Limited By: Intoxication General Appearance: Alert, WD/WN, No Apparent Distress Course - Vital Signs Last Recorded V/S: Last Vital Signs Temp 97.2 F 05/02/20 09:53 Pulse 62 05/02/20 09:53 Resp 15 05/02/20 09:53 BP 128/87 05/02/20 09:53 Pulse Ox 98 05/02/20 09:53 - Orders/Labs/Meds Orders: Active Orders 24 hr Category Date Time Status Influenza Vaccine Charge [RC] .DISCHARGE Care 05/02/20 09:45 Active Shoulder Comp Lt [CR] Stat Exams 05/02/20 10:00 Ordered Meds: Medications Discontinued Medications Generic Name Dose Route Start Last Admin Trade Name Ro PRN Reason Stop Dose Admin Ketorolac Tromethamine 60 mg 05/02/20 10:00 05/02/20 10:12 Toradol IM 05/02/20 10:01 60 mg ONETIME ONE Administration - Re-Assessments/Exams Free Text/Narrative Re-Assessment/Exam: 05/02/20 10:40 After he stated to me he had left shoulder pain when x-ray arrived he states he has right shoulder pain he recently had CT scan of the right shoulder done 3 days prior for impingement syndrome. My suspicion is this is related to his level of intoxication Departure - Departure Time of Disposition: 10:51 Disposition: Home, Self-Care 01 Condition: Fair Clinical Impression: Impingement syndrome of right shoulder - Discharge Information Instructions: Shoulder Impingement Syndrome Referrals: PCP,None [Primary Care Provider] - Forms: ED Department Discharge Additional Instructions: Follow-up with your primary care this week for further evaluation and treatment Sepsis Event Note (ED) - Evaluation Sepsis Screening Result: No Definite Risk - Focused Exam Vital Signs: Vital Signs Temp Pulse Resp BP Pulse Ox 05/02/20 09:53 97.2 F 62 15 128/87 98 05/02/20 09:36 97.2 F 62 15 128/87 98 - My Orders Last 24 Hours: My Active Orders 05/02/20 09:45 Influenza Vaccine Charge [RC] .DISCHARGE 05/02/20 10:00 Shoulder Comp Lt [CR] Stat - Assessment/Plan Last 24 Hours: My Active Orders 05/02/20 09:45 Influenza Vaccine Charge [RC] .DISCHARGE 05/02/20 10:00 Shoulder Comp Lt [CR] Stat Plan: Assessment Acuity = acute Site and laterality = right shoulder impingement Etiology = unknown Manifestations = none Location of injury = Home Lab values = CT scan describes injury above Plan He is can follow-up with his primary care for further evaluation and treatment This note was dictated using [employer] voice recognition software please call with any questions on syntax or grammar.
== END 2020-05-02 10:56 | disposition home or self-care (01) ==
LOC: JP.ED 09:35
DX: M75.42 Impingement syndrome of left shoulder (principal); I10 Essential (primary) hypertension; F17.210 Nicotine dependence, cigarettes, uncomplicated; F32.9 Major depressive disorder, single episode, unspecified; F41.9 Anxiety disorder, unspecified; Z79.899 Other long term (current) drug therapy
CPT/HCPCS: 96372; 99283; J1885

== ENCOUNTER 2020-05-10 11:45 | Emergency (ER) | payer MEDICAID ==
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
== END 2020-05-10 14:00 | disposition home or self-care (01) ==
LOC: JP.ED 11:45
DX: H57.12 Ocular pain, left eye (principal); I10 Essential (primary) hypertension; F41.9 Anxiety disorder, unspecified; F32.9 Major depressive disorder, single episode, unspecified; F17.210 Nicotine dependence, cigarettes, uncomplicated; Z79.899 Other long term (current) drug therapy
CPT/HCPCS: 36415; 80305-QW; 80307; 81001; 84484; 99285-25

== ENCOUNTER 2020-05-10 22:28 | Emergency (ER) | payer MEDICAID ==
[2020-05-10 22:36] VITALS: BP 155/94; PULSE 86
[2020-05-10] MEDS ORDERED: Proparacaine 0.5% Ophth Soln 15 ML Bottle EYELF ONE (22:59)
--- NOTE | 2020-05-10 23:14 | EDM.PDOC ---
ED HPI GENERAL MEDICAL PROBLEM - General Chief Complaint: Eye Problems Stated Complaint: [facility] Time Seen by Provider: 05/10/20 22:50 Source of Information: Reports: Patient, EMS History Limitations: Reports: Intoxication - History of Present Illness INITIAL COMMENTS - FREE TEXT/NARRATIVE: 54-year-old male was seen earlier today, very intoxicated complaining about a chronic left eye discomfort. An appointment was set up for an optometry visit tomorrow in [place], but the patient could not find a ride to take him so he called the ambulance and came back here. He is still acting intoxicated and agitated. Photophobic in the left eye. Symptoms are not any different than they were earlier today over the last several years. No new trauma. Onset: Unknown/Unsure Duration: Chronic Associated Symptoms: Reports: Other (Intermittent sharp pains in the left eye with photophobia, no other complaints other than a twitching in his left shoulder and some numbness of his hands) left eye Pain Score (Numeric/FACES): 10 chest pain Pain Score (Numeric/FACES): 10 - Related Data Allergies Allergy/AdvReac Type Severity Reaction Status Date / Time No Known Allergies Allergy Verified 05/10/20 22:37 Home Meds: Home Meds PARoxetine [Paxil] 20 mg PO DAILY 05/27/19 [History] Loratadine 10 mg PO DAILY PRN 08/01/19 [History] diphenhydrAMINE HCL [Benadryl] 25 mg PO DAILY 10/04/19 [History] Folic Acid 1 mg PO DAILY 02/08/20 [History] Magnesium Oxide 400 mg PO DAILY 02/08/20 [History] amLODIPine [Norvasc] 5 mg PO DAILY 05/02/20 [History] Past Medical History HEENT History: Reports: Other (See Below) Other HEENT History: Dental caries Cardiovascular History: Reports: Hypertension Musculoskeletal History: Reports: Fracture Neurological History: Reports: Headaches, Chronic, Head Trauma Psychiatric History: Reports: Anxiety, Bipolar, Depression - Infectious Disease History Infectious Disease History: Reports: Chicken Pox - Past Surgical History HEENT Surgical History: Reports: Eye Surgery Musculoskeletal Surgical History: Reports: Arthroscopic Procedure, Shoulder Surgery Other Musculoskeletal Surgeries/Procedures:: left shoulder Social & Family History - Family History Family Medical History: Unobtainable - Tobacco Use Smoking Status *Q: Current Every Day Smoker Years of Tobacco use: 38 Packs/Tins Daily: 0.2 - Caffeine Use Caffeine Use: Reports: Coffee, Soda Other Caffeine Use: mountain dew and pepsi every day cans per day. coffee in the morning 5 per day. - Alcohol Use Days Per Week of Alcohol Use: 7 Number of Drinks Per Day: 5 Total Drinks Per Week: 35 - Recreational Drug Use Recreational Drug Use: Yes Recreational Drug Type: Reports: Marijuana/Hashish ED ROS GENERAL - Review of Systems Review Of Systems: See Below Constitutional: Denies: Fever, Chills HEENT: Reports: Eye Pain, Other (Left side photophobia left side) Respiratory: Denies: Shortness of Breath Cardiovascular: Denies: Chest Pain GI/Abdominal: Denies: Abdominal Pain Musculoskeletal: Reports: Other (Twitching muscle in his left shoulder) Neurological: Reports: Paresthesia (Hands bilaterally) Psychiatric: Reports: Anxiety ED EXAM GENERAL W FULL EYE - Physical Exam Exam: See Below Exam Limited By: Intoxication General Appearance: Alert, No Apparent Distress Eye Exam: Bilateral Eye: PERRL (He does react with photophobia of the left eye) Eyelids: Bilateral: Normal Appearance Extraocular Movements: Bilateral: Intact Respiratory/Chest: No Respiratory Distress Course - Vital Signs Last Recorded V/S: Last Vital Signs Temp 99.3 F 05/10/20 22:46 Pulse 86 05/10/20 22:46 Resp 19 05/10/20 22:46 BP 155/94 H 05/10/20 22:46 Pulse Ox 97 05/10/20 22:46 - Orders/Labs/Meds Labs: Laboratory Tests 05/10/20 Range/Units 22:45 Ethyl Alcohol 276 mg/dL Meds: Medications Discontinued Medications Generic Name Dose Route Start Last Admin Trade Name Ro PRN Reason Stop Dose Admin Proparacaine HCl 1 ml 05/10/20 22:59 05/10/20 23:07 Proparacaine 0.5% Ophth Soln EYELF 05/10/20 23:00 1 ml ONETIME ONE Administration - Re-Assessments/Exams Free Text/Narrative Re-Assessment/Exam: 05/10/20 23:13 Proparacaine was placed in the left eye with really not much improvement. I encouraged him to see his local base brander if he can get to [place] for his appointment. Nothing more to offer from the emergency room perspective. I rechecked his alcohol level but he left prior to his level returning. 05/11/20 06:12 Etoh is still .276 Departure - Departure Time of Disposition: 23:24 Disposition: Home, Self-Care 01 Clinical Impression: Pain, eye, left Alcohol intoxication Qualifiers: Complication of substance-induced condition: uncomplicated Qualified Code(s): F10.920 - Alcohol use, unspecified with intoxication, uncomplicated - Discharge Information Instructions: Alcohol Intoxication Referrals: PCP,None [Primary Care Provider] - Forms: ED Department Discharge Care Plan Goals: Call your eye clinic for an appointment this week. Sepsis Event Note (ED) - Evaluation Sepsis Screening Result: No Definite Risk - Focused Exam Vital Signs: Vital Signs Temp Pulse Resp BP Pulse Ox 05/10/20 22:46 99.3 F 86 19 155/94 H 97 05/10/20 22:34 99.3 F 86 19 155/94 H 97
== END 2020-05-10 23:24 | disposition home or self-care (01) ==
LOC: JP.ED 22:28
DX: F10.120 Alcohol abuse with intoxication, uncomplicated (principal); H57.12 Ocular pain, left eye; Y90.8 Blood alcohol level of 240 mg/100 ml or more; I10 Essential (primary) hypertension; F17.210 Nicotine dependence, cigarettes, uncomplicated; F41.9 Anxiety disorder, unspecified; F32.9 Major depressive disorder, single episode, unspecified; Z79.899 Other long term (current) drug therapy
CPT/HCPCS: 36415; 80307; 99284; A9270

== ENCOUNTER 2020-05-15 04:27 | Emergency (ER) | payer MEDICAID ==
[2020-05-15 04:38] VITALS: BP 143/85; PULSE 93
[2020-05-15] MEDS ORDERED: Sodium Chloride 0.9% 10 ML Syringe FLUSH PRN (04:58)
[2020-05-15] MEDS ORDERED: Methocarbamol 500 MG Tab PO ONE (04:58)
[2020-05-15] MEDS ORDERED: Ketorolac 30 MG/ML SDV IVPUSH ONE (04:58)
--- NOTE | 2020-05-15 05:06 | EDM.PDOC ---
ED HPI GENERAL MEDICAL PROBLEM - General Chief Complaint: Flank Pain Stated Complaint: LEFT SIDED PAIN Time Seen by Provider: 05/15/20 04:46 Source of Information: Reports: Patient, Old Records History Limitations: Reports: No Limitations - History of Present Illness INITIAL COMMENTS - FREE TEXT/NARRATIVE: Wood is a 54-year-old male presenting to the ED for evaluation of chronic, ongoing left flank and abdominal pain. Patient states that he gets this every day at 4 AM and it typically lasts until 11 AM. It is associated with the acute onset of night sweats around 1 AM. He reports that at times he has diarrhea with it and at other times he gets constipation. He states that at 1 AM he gets drenching night sweats where he has to uncover from the blankets because he is too hot and then has to cover again because he gets cold. He denies any nausea or vomiting. He states pain makes it difficult for him to breathe. The patient did walk 4 blocks here to be evaluated tonight. He denies having any fever despite having the night sweats and chills. The patient does admit to alcohol use but states he usually drinks on the weekends. In review of the patient's records it appears that he has presented numerous times for back pain with similar story and has been treated for paraspinal muscle spasm. Admittedly, the patient is not a great historian and is not even sure what medications he takes on a regular basis. He does deny any trauma. He has not been doing any heavy lifting. Duration: Chronic Location: Reports: Abdomen, Back Quality: Reports: Ache, Burning, Same as Previous Episode, Sharp Severity: Moderate Improves with: Reports: None Worsens with: Reports: Breathing, Movement Associated Symptoms: Reports: Diaphoresis, Shortness of Breath left flank pain Pain Score (Numeric/FACES): 9 - Related Data Allergies Allergy/AdvReac Type Severity Reaction Status Date / Time No Known Allergies Allergy Verified 05/15/20 04:35 Home Meds: Home Meds PARoxetine [Paxil] 20 mg PO DAILY 05/27/19 [History] Loratadine 10 mg PO DAILY PRN 08/01/19 [History] diphenhydrAMINE HCL [Benadryl] 25 mg PO DAILY 10/04/19 [History] Folic Acid 1 mg PO DAILY 02/08/20 [History] Magnesium Oxide 400 mg PO DAILY 02/08/20 [History] amLODIPine [Norvasc] 5 mg PO DAILY 05/02/20 [History] Past Medical History HEENT History: Reports: Other (See Below) Other HEENT History: Dental caries Cardiovascular History: Reports: Hypertension Musculoskeletal History: Reports: Fracture Neurological History: Reports: Headaches, Chronic, Head Trauma Psychiatric History: Reports: Anxiety, Bipolar, Depression - Infectious Disease History Infectious Disease History: Reports: Chicken Pox, Measles, Mumps - Past Surgical History HEENT Surgical History: Reports: Eye Surgery Musculoskeletal Surgical History: Reports: Arthroscopic Procedure, Shoulder Surgery Other Musculoskeletal Surgeries/Procedures:: left shoulder Social & Family History - Family History Family Medical History: Unobtainable - Tobacco Use Tobacco Use Status *Q: Current Every Day Tobacco User Years of Tobacco use: 35 Packs/Tins Daily: 0.5 - Caffeine Use Caffeine Use: Reports: Coffee Other Caffeine Use: mountain dew and pepsi every day cans per day. coffee in the morning 5 per day. - Alcohol Use Days Per Week of Alcohol Use: 2 Number of Drinks Per Day: 1 Total Drinks Per Week: 2 Date of Last Drink: 05/14/20 - Recreational Drug Use Recreational Drug Use: No ED ROS GENERAL - Review of Systems Review Of Systems: See Below Constitutional: Reports: Chills, Night Sweats HEENT: Reports: Eye Pain (Patient is having ongoing issues with his left eye after having surgery on it. He was seen by optometry in [place] on 05/11/2020 to address this.) Respiratory: Reports: Shortness of Breath Cardiovascular: Reports: No Symptoms Endocrine: Reports: No Symptoms GI/Abdominal: Reports: Abdominal Pain, Constipation, Diarrhea : Reports: Flank Pain Musculoskeletal: Reports: Shoulder Pain (Chronic left shoulder pain, apparently the patient recently had shoulder surgery.), Back Pain (Chronic thoracolumbar pain), Muscle Pain, Muscle Stiffness Skin: Reports: No Symptoms Neurological: Reports: No Symptoms Psychiatric: Reports: Anxiety Hematologic/Lymphatic: Reports: No Symptoms Immunologic: Reports: No Symptoms ED EXAM,LOWER BACK PAIN/INJURY - Physical Exam Exam: See Below Exam Limited By: No Limitations General Appearance: Alert, Anxious, Moderate Distress Eye Exam: Bilateral Eye: EOMI, PERRL Head: Atraumatic, Normocephalic Neck: Normal Inspection, Supple, Non-Tender, Full Range of Motion Respiratory/Chest: No Respiratory Distress, Lungs Clear, Normal Breath Sounds, No Accessory Muscle Use, Chest Non-Tender Cardiovascular: Normal Peripheral Pulses, Regular Rate, Rhythm, No Edema, No Gallop, No JVD, No Murmur, No Rub GI/Abdominal: Soft, No Organomegaly, No Distention, No Abnormal Bruit, No Mass, Guarding, Tender (Epigastric and midline abdomen pain with guarding but no rebound tenderness), Abnormal Bowel Sounds (Increased bowel sounds). No: Rebound Back Exam: Muscle Spasm, Paraspinal Tenderness (Paraspinal muscles spasm and tenderness to palpation in the thoracolumbar spine on the left greater than right. Pain is reproduced with even the lightest of touch.). No: Vertebral Tenderness Extremities: Normal Inspection, Normal Range of Motion, Non-Tender, No Pedal Edema, Normal Capillary Refill Neurological: Alert, Normal Dorsiflexion, CN II-XII Intact, Normal Plantar Flexion, No Motor/Sensory Deficits, Oriented x 3, Abnormal Gait (Mild antalgic gait) Psychiatric: Anxious Skin Exam: Warm, Dry, Intact, Normal Color, No Rash Lymphatic: No Adenopathy Front/Back Body Diagram: 1 - Paraspinal muscle spasm, pain is reproducible with even the lightest of touch over this region. No midline tenderness to palpation. Course - Vital Signs Last Recorded V/S: Last Vital Signs Temp 35.9 C L 05/15/20 04:37 Pulse 93 05/15/20 04:37 Resp 18 05/15/20 04:37 BP 143/85 H 05/15/20 04:37 Pulse Ox 97 05/15/20 04:37 - Orders/Labs/Meds Orders: Active Orders 24 hr Category Date Time Status Sodium Chloride 0.9% [Saline Flush] Med 05/15/20 04:58 Active 10 ml FLUSH ASDIRECTED PRN Saline Lock Insert [OM.PC] Routine Oth 05/15/20 04:58 Ordered Medication Orders Sodium Chloride (Saline Flush) 10 ml FLUSH ASDIRECTED PRN PRN Reason: Keep Vein Open Last Admin: 05/15/20 05:08 Dose: 10 ml Documented by: ANURADHA Labs: Laboratory Tests 05/15/20 05/15/20 05/15/20 Range/Units 04:58 05:05 05:05 WBC 6.8 (4.5-11.0) K/uL RBC 4.07 L (4.30-5.90) M/uL Hgb 12.8 D (12.0-15.0) g/dL Hct 38.3 L (40.0-54.0) % MCV 94 (80-98) fL MCH 31 (27-31) pg MCHC 33 (32-36) % Plt Count 97 L (150-400) K/uL Neut % (Auto) 39 (36-66) % Lymph % (Auto) 50 H (24-44) % [place] % (Auto) 8 H (2-6) % Eos % (Auto) 3 (2-4) % Baso % (Auto) 0 (0-1) % ESR 9 (0-20) mm/hr Sodium 141 (140-148) mmol/L Potassium 3.4 L (3.6-5.2) mmol/L Chloride 105 (100-108) mmol/L Carbon Dioxide 26 (21-32) mmol/L Anion Gap 13.4 (5.0-14.0) mmol/L BUN 17 D (7-18) mg/dL Creatinine 1.0 (0.8-1.3) mg/dL Est Cr Clr Drug Dosing 86.18 mL/min Estimated GFR (MDRD) > 60 (>60) Glucose 100 (74-106) mg/dL Calcium 8.2 L (8.5-10.1) mg/dL Total Bilirubin 0.3 D (0.2-1.0) mg/dL AST 14 L D (15-37) U/L ALT 24 (12-78) U/L Alkaline Phosphatase 37 L (46-116) U/L Troponin I < 0.017 (0.000-0.056) ng/mL C-Reactive Protein < 0.05 (0.0-0.3) mg/dL Total Protein 6.6 (6.4-8.2) g/dL Albumin 3.8 (3.4-5.0) g/dL Globulin 2.8 (2.3-3.5) g/dL Albumin/Globulin Ratio 1.4 (1.2-2.2) Lipase 215 (73-393) U/L Urine Color Yellow (YELLOW) Urine Appearance Clear (CLEAR) Urine pH 5.5 (5.0-8.0) Ur Specific [place] >= 1.030 (1.008-1.030) Urine Protein Negative (NEGATIVE) mg/dL Urine Glucose (UA) Negative (NEGATIVE) mg/dL Urine Ketones Negative (NEGATIVE) mg/dL Urine Occult Blood Negative (NEGATIVE) Urine Nitrite Negative (NEGATIVE) Urine Bilirubin Negative (NEGATIVE) Urine Urobilinogen 0.2 (0.2-1.0) EU/dL Ur Leukocyte Esterase Negative (NEGATIVE) Urine RBC 0-5 (0-5) Urine WBC 0-5 (0-5) Ur Epithelial Cells Few Amorphous Sediment Not seen Urine Bacteria Few Urine Mucus Not seen Ethyl Alcohol mg/dL 05/15/20 Range/Units 05:14 WBC (4.5-11.0) K/uL RBC (4.30-5.90) M/uL Hgb (12.0-15.0) g/dL Hct (40.0-54.0) % MCV (80-98) fL MCH (27-31) pg MCHC (32-36) % Plt Count (150-400) K/uL Neut % (Auto) (36-66) % Lymph % (Auto) (24-44) % [place] % (Auto) (2-6) % Eos % (Auto) (2-4) % Baso % (Auto) (0-1) % ESR (0-20) mm/hr Sodium (140-148) mmol/L Potassium (3.6-5.2) mmol/L Chloride (100-108) mmol/L Carbon Dioxide (21-32) mmol/L Anion Gap (5.0-14.0) mmol/L BUN (7-18) mg/dL Creatinine (0.8-1.3) mg/dL Est Cr Clr Drug Dosing mL/min Estimated GFR (MDRD) (>60) Glucose (74-106) mg/dL Calcium (8.5-10.1) mg/dL Total Bilirubin (0.2-1.0) mg/dL AST (15-37) U/L ALT (12-78) U/L Alkaline Phosphatase (46-116) U/L Troponin I (0.000-0.056) ng/mL C-Reactive Protein (0.0-0.3) mg/dL Total Protein (6.4-8.2) g/dL Albumin (3.4-5.0) g/dL Globulin (2.3-3.5) g/dL Albumin/Globulin Ratio (1.2-2.2) Lipase (73-393) U/L Urine Color (YELLOW) Urine Appearance (CLEAR) Urine pH (5.0-8.0) Ur Specific [place] (1.008-1.030) Urine Protein (NEGATIVE) mg/dL Urine Glucose (UA) (NEGATIVE) mg/dL Urine Ketones (NEGATIVE) mg/dL Urine Occult Blood (NEGATIVE) Urine Nitrite (NEGATIVE) Urine Bilirubin (NEGATIVE) Urine Urobilinogen (0.2-1.0) EU/dL Ur Leukocyte Esterase (NEGATIVE) Urine RBC (0-5) Urine WBC (0-5) Ur Epithelial Cells Amorphous Sediment Urine Bacteria Urine Mucus Ethyl Alcohol 311 mg/dL Meds: Medications Generic Name Dose Route Start Last Admin Trade Name Freq PRN Reason Stop Dose Admin Sodium Chloride 10 ml 05/15/20 04:58 05/15/20 05:08 Saline Flush FLUSH 10 ml ASDIRECTED PRN Administration Keep Vein Open Discontinued Medications Generic Name Dose Route Start Last Admin Trade Name Freq PRN Reason Stop Dose Admin Ketorolac Tromethamine 30 mg 05/15/20 04:58 05/15/20 05:09 Toradol IVPUSH 05/15/20 04:59 30 mg ONETIME ONE Administration Methocarbamol 500 mg 05/15/20 04:58 05/15/20 05:09 Robaxin PO 05/15/20 04:59 500 mg ONETIME ONE Administration Departure - Departure Time of Disposition: 05:57 Disposition: Home, Self-Care 01 Condition: Good Clinical Impression: Alcohol intoxication, Chronic back pain greater than 3 months duration, Hyp okalemia, Alcohol abuse, ALICJA (generalized anxiety disorder) - Discharge Information *PRESCRIPTION DRUG MONITORING PROGRAM REVIEWED*: No *COPY OF PRESCRIPTION DRUG MONITORING REPORT IN PATIENT MATTHEW: No Instructions: Alcohol Use Disorder, Hypokalemia, Flank Pain, Adult, [id number], Chronic Back Pain, [id number] Referrals: Yvonne Ureña MD [Primary Care Provider] - Forms: ED Department Discharge Care Plan Goals: I am providing you with a prescription for methocarbamol 500 mg for muscle spasm. You may take up to 1 tablet 3 times a day as needed to control your back pain. I encourage you to continue to do gentle stretches and ice the back to reduce the muscle spasms. You may want to meet with your primary care provider to discuss physical therapy to help strengthen of the back muscles so that you do not continue to have ongoing issues with this. The remainder of your labs looked okay today with the exception of your alcohol level which was 311. Encourage you to cut back on your alcohol intake as this raises your risk of fall and serious injury. Do not take the methocarbamol in combination with the alcohol as this can cause serious impairment to your breathing. Sepsis Event Note (ED) - Evaluation Sepsis Screening Result: No Definite Risk - Focused Exam Vital Signs: Vital Signs Temp Pulse Resp BP Pulse Ox 05/15/20 04:37 35.9 C L 93 18 143/85 H 97 - Problem List & Annotations (1) Alcohol intoxication SNOMED Code(s): 02796596 Code(s): F10.929 - ALCOHOL USE, UNSPECIFIED WITH INTOXICATION, UNSPECIFIED Status: Acute Priority: Medium Current Visit: Yes Qualifiers: Complication of substance-induced condition: uncomplicated Qualified Code(s): F10.920 - Alcohol use, unspecified with intoxication, uncomplicated (2) Chronic back pain greater than 3 months duration SNOMED Code(s): 603847256745 Code(s): M54.9 - DORSALGIA, UNSPECIFIED; G89.29 - OTHER CHRONIC PAIN Statu s: Acute Priority: Medium Current Visit: Yes (3) Hypokalemia SNOMED Code(s): 89752401 Code(s): E87.6 - HYPOKALEMIA Status: Acute Priority: Low Current Visit: Yes (4) Alcohol abuse SNOMED Code(s): 69130109 Code(s): F10.10 - ALCOHOL ABUSE, UNCOMPLICATED Status: Chronic Priority: Medium Current Visit: Yes (5) ALICJA (generalized anxiety disorder) SNOMED Code(s): 14046894 Code(s): F41.1 - GENERALIZED ANXIETY DISORDER Status: Chronic Priority: Low Current Visit: Yes - Problem List Review Problem List Initiated/Reviewed/Updated: Yes - My Orders Last 24 Hours: My Active Orders 05/15/20 04:58 Sodium Chloride 0.9% [Saline Flush] 10 ml FLUSH ASDIRECTED PRN Saline Lock Insert [OM.PC] Routine - Assessment/Plan Last 24 Hours: My Active Orders 05/15/20 04:58 Sodium Chloride 0.9% [Saline Flush] 10 ml FLUSH ASDIRECTED PRN Saline Lock Insert [OM.PC] Routine
== END 2020-05-15 06:07 | disposition home or self-care (01) ==
LOC: JP.ED 04:27
DX: M54.5 Low back pain (principal); M54.6 Pain in thoracic spine; G89.29 Other chronic pain; E87.6 Hypokalemia; F41.1 Generalized anxiety disorder; F10.129 Alcohol abuse with intoxication, unspecified; F17.210 Nicotine dependence, cigarettes, uncomplicated; F32.9 Major depressive disorder, single episode, unspecified; Y90.8 Blood alcohol level of 240 mg/100 ml or more
CPT/HCPCS: 36415; 80053; 80307; 81001; 83690; 84484; 85025; 85651; 86140; 96374; 99284; A9270; J1885

== ENCOUNTER 2020-10-04 14:15 | Emergency (ER) | payer MEDICAID ==
--- NOTE | 2020-10-04 15:27 | EDM.PDOCBH ---
<Neema Luna - Last Filed: 10/04/20 17:50> ED HPI GENERAL MEDICAL PROBLEM - General Chief Complaint: Behavioral/Psych Stated Complaint: EVAL Time Seen by Provider: 10/04/20 15:25 Source of Information: Reports: Patient History Limitations: Reports: No Limitations - History of Present Illness INITIAL COMMENTS - FREE TEXT/NARRATIVE: pt is having thought of harming himself and mainly others, He had chest pain today. He has a history of chronic headaches. Onset: Gradual Duration: Day(s): Location: Reports: Generalized Associated Symptoms: Reports: No Other Symptoms - Related Data Allergies Allergy/AdvReac Type Severity Reaction Status Date / Time No Known Allergies Allergy Verified 10/04/20 14:48 Home Meds: Home Meds PARoxetine [Paxil] 20 mg PO DAILY 05/27/19 [History] Loratadine 10 mg PO DAILY PRN 08/01/19 [History] diphenhydrAMINE HCL [Benadryl] 25 mg PO DAILY 10/04/19 [History] Folic Acid 1 mg PO DAILY 02/08/20 [History] Magnesium Oxide 400 mg PO DAILY 02/08/20 [History] amLODIPine [Norvasc] 5 mg PO DAILY 05/02/20 [History] Baclofen 20 mg PO TID 10/04/20 [History] traZODone 100 mg PO BEDTIME 10/04/20 [History] Past Medical History HEENT History: Reports: Other (See Below) Other HEENT History: Dental caries Cardiovascular History: Reports: Hypertension Musculoskeletal History: Reports: Fracture Neurological History: Reports: Headaches, Chronic, Head Trauma Psychiatric History: Reports: Anxiety, Bipolar, Depression - Infectious Disease History Infectious Disease History: Reports: Chicken Pox, Measles, Mumps - Past Surgical History HEENT Surgical History: Reports: Eye Surgery Musculoskeletal Surgical History: Reports: Arthroscopic Procedure, Shoulder Surgery Other Musculoskeletal Surgeries/Procedures:: left shoulder Social & Family History - Family History Family Medical History: Unobtainable - Tobacco Use Tobacco Use Status *Q: Current Every Day Tobacco User Years of Tobacco use: 20 Packs/Tins Daily: 0.5 - Caffeine Use Caffeine Use: Reports: Coffee Other Caffeine Use: mountain dew and pepsi every day cans per day. coffee in the morning 5 per day. - Alcohol Use Days Per Week of Alcohol Use: 7 Number of Drinks Per Day: 10 Total Drinks Per Week: 70 - Recreational Drug Use Recreational Drug Use: Yes Recreational Drug Type: Reports: Marijuana/Hashish ED ROS GENERAL - Review of Systems Review Of Systems: See Below Constitutional: Reports: No Symptoms HEENT: Reports: No Symptoms Respiratory: Reports: No Symptoms Cardiovascular: Reports: No Symptoms Endocrine: Reports: No Symptoms GI/Abdominal: Reports: No Symptoms : Reports: No Symptoms Musculoskeletal: Reports: No Symptoms Neurological: Reports: Headache, Other (pt stes he has numerous coils behind the left eye. ) Psychiatric: Reports: Anxiety, Other (pt states that he was placed on baclofen and trazadone and since that time he waNTS TO HURT OTHER PEOPLE. hE HAS NOT USED THAT FOR SEVERAL DAYS AND HE STILL HAS THAT SENSATION. ) Hematologic/Lymphatic: Reports: No Symptoms Immunologic: Reports: No Symptoms ED EXAM, BEHAVIORAL HEALTH - Physical Exam Exam: See Below Text/Narrative:: PT IS ALERT ANS SEEMES AGITATED. Exam Limited By: No Limitations General Appearance: Alert, Anxious, Other (PUPILS EQUAL AND REACTIVE. ) Ears: Normal TMs Nose: Normal Inspection Throat/Mouth: Normal Inspection Head: Atraumatic Neck: Normal Inspection Respiratory/Chest: No Respiratory Distress Cardiovascular: Regular Rate, Rhythm GI/Abdominal: Soft, Non-Tender (Male) Exam: Deferred Rectal (Males) Exam: Deferred Back Exam: Normal Inspection Extremities: Normal Inspection Neurological: Alert, Normal Cognition, Oriented x 3 COURSE, BEHAVIORAL HEALTH COMP - Course Medical Clearance: 10/04/20 17:26 TROP IS NORMAL EKG IS GOOD. pT COMPAINED OF CHEST PAIN EARLIER TODAY. 10/04/20 17:50 THE CRISIS TEAM WAS CALLED AND THEY WANTED TO EVALUATE HIM WHEN HE WAS MORE SOBER. a REPEAT ETOH WAS ORDERED AT THIS TIME. Departure - Departure Disposition: Home, Self-Care 01 Clinical Impression: Alcohol intoxication Qualifiers: Complication of substance-induced condition: uncomplicated Qualified Code(s): F10.920 - Alcohol use, unspecified with intoxication, uncomplicated - Discharge Information Instructions: Alcohol Intoxication, [id number] Referrals: PCP,None [Primary Care Provider] - Forms: ED Department Discharge Care Plan Goals: Avoid alcohol for the next several days and sober up. Talk to your regular doctor who prescribes your medicines if you think you are having side effects to the medicines. Return anytime if worsening or concerns. Sepsis Event Note (ED) - Evaluation Sepsis Screening Result: No Definite Risk <Gerson Capps - Last Filed: 10/04/20 20:56> COURSE, BEHAVIORAL HEALTH COMP - Course Vital Signs: Last Vital Signs Temp 98.2 F 10/04/20 14:57 Pulse 102 H 10/04/20 17:02 Resp 16 10/04/20 17:02 BP 151/92 H 10/04/20 17:02 Pulse Ox 93 L 10/04/20 17:02 Orders, Labs, Meds: Active Orders 24 hr Category Date Time Status Chest 1V Frontal [CR] Stat Exams 10/04/20 15:25 Taken EKG 12 Lead [EK] Routine Ther 10/04/20 15:24 Ordered Laboratory Tests 10/04/20 10/04/20 10/04/20 Range/Units 15:18 15:22 15:22 WBC 8.4 (4.5-11.0) K/uL RBC 5.02 (4.30-5.90) M/uL Hgb 15.9 H D (12.0-15.0) g/dL Hct 47.0 (40.0-54.0) % MCV 94 (80-98) fL MCH 32 H (27-31) pg MCHC 34 (32-36) % Plt Count 241 (150-400) K/uL Neut % (Auto) 56 (36-66) % Lymph % (Auto) 40 (24-44) % [place] % (Auto) 4 (2-6) % Eos % (Auto) 1 L (2-4) % Baso % (Auto) 0 (0-1) % Sodium (140-148) mmol/L Potassium (3.6-5.2) mmol/L Chloride (100-108) mmol/L Carbon Dioxide (21-32) mmol/L Anion Gap (5.0-14.0) mmol/L BUN (7-18) mg/dL Creatinine (0.8-1.3) mg/dL Est Cr Clr Drug Dosing mL/min Estimated GFR (MDRD) (>60) Glucose (74-106) mg/dL Calcium (8.5-10.1) mg/dL Total Bilirubin (0.2-1.0) mg/dL AST (15-37) U/L ALT (12-78) U/L Alkaline Phosphatase (46-116) U/L Troponin I (0.000-0.056) ng/mL Total Protein (6.4-8.2) g/dL Albumin (3.4-5.0) g/dL Globulin (2.3-3.5) g/dL Albumin/Globulin Ratio (1.2-2.2) Urine Color Yellow (YELLOW) Urine Appearance Clear (CLEAR) Urine pH 5.5 (5.0-8.0) Ur Specific [place] >= 1.030 (1.008-1.030) Urine Protein 100 H (NEGATIVE) mg/dL Urine Glucose (UA) Negative (NEGATIVE) mg/dL Urine Ketones 40 H (NEGATIVE) mg/dL Urine Occult Blood Trace-lysed H (NEGATIVE) Urine Nitrite Negative (NEGATIVE) Urine Bilirubin Negative (NEGATIVE) Urine Urobilinogen 0.2 (0.2-1.0) EU/dL Ur Leukocyte Esterase Negative (NEGATIVE) Urine RBC 0-5 (0-5) Urine WBC Not seen (0-5) Ur Epithelial Cells Few Amorphous Sediment Not seen Urine Bacteria Few Urine Mucus Moderate Urine Other Urine Opiates Screen Negative (NEGATIVE) Ur Oxycodone Screen Negative (NEGATIVE) Urine Methadone Screen Negative (NEGATIVE) Ur Propoxyphene Screen Negative (NEGATIVE) Ur Barbiturates Screen Negative (NEGATIVE) Ur Tricyclics Screen Negative (NEGATIVE) Ur Phencyclidine Scrn Negative (NEGATIVE) Ur Amphetamine Screen Negative (NEGATIVE) U Methamphetamines Scrn Negative (NEGATIVE) Urine MDMA Screen Negative (NEGATIVE) U Benzodiazepines Scrn Negative (NEGATIVE) U Cocaine Metab Screen Negative (NEGATIVE) U Marijuana (THC) Screen Presumptive positive H (NEGATIVE) Ethyl Alcohol mg/dL 10/04/20 10/04/20 10/04/20 Range/Units 15:47 15:47 15:47 WBC (4.5-11.0) K/uL RBC (4.30-5.90) M/uL Hgb (12.0-15.0) g/dL Hct (40.0-54.0) % MCV (80-98) fL MCH (27-31) pg MCHC (32-36) % Plt Count (150-400) K/uL Neut % (Auto) (36-66) % Lymph % (Auto) (24-44) % [place] % (Auto) (2-6) % Eos % (Auto) (2-4) % Baso % (Auto) (0-1) % Sodium 147 (140-148) mmol/L Potassium 4.5 (3.6-5.2) mmol/L Chloride 104 (100-108) mmol/L Carbon Dioxide 26 (21-32) mmol/L Anion Gap 17.5 H (5.0-14.0) mmol/L BUN 9 (7-18) mg/dL Creatinine 1.1 (0.8-1.3) mg/dL Est Cr Clr Drug Dosing 78.35 mL/min Estimated GFR (MDRD) > 60 (>60) Glucose 79 (74-106) mg/dL Calcium 8.7 (8.5-10.1) mg/dL Total Bilirubin 0.9 D (0.2-1.0) mg/dL AST 50 H D (15-37) U/L ALT 38 (12-78) U/L Alkaline Phosphatase 63 (46-116) U/L Troponin I < 0.017 (0.000-0.056) ng/mL Total Protein 7.4 (6.4-8.2) g/dL Albumin 4.4 (3.4-5.0) g/dL Globulin 3.0 (2.3-3.5) g/dL Albumin/Globulin Ratio 1.5 (1.2-2.2) Urine Color (YELLOW) Urine Appearance (CLEAR) Urine pH (5.0-8.0) Ur Specific [place] (1.008-1.030) Urine Protein (NEGATIVE) mg/dL Urine Glucose (UA) (NEGATIVE) mg/dL Urine Ketones (NEGATIVE) mg/dL Urine Occult Blood (NEGATIVE) Urine Nitrite (NEGATIVE) Urine Bilirubin (NEGATIVE) Urine Urobilinogen (0.2-1.0) EU/dL Ur Leukocyte Esterase (NEGATIVE) Urine RBC (0-5) Urine WBC (0-5) Ur Epithelial Cells Amorphous Sediment Urine Bacteria Urine Mucus Urine Other Urine Opiates Screen (NEGATIVE) Ur Oxycodone Screen (NEGATIVE) Urine Methadone Screen (NEGATIVE) Ur Propoxyphene Screen (NEGATIVE) Ur Barbiturates Screen (NEGATIVE) Ur Tricyclics Screen (NEGATIVE) Ur Phencyclidine Scrn (NEGATIVE) Ur Amphetamine Screen (NEGATIVE) U Methamphetamines Scrn (NEGATIVE) Urine MDMA Screen (NEGATIVE) U Benzodiazepines Scrn (NEGATIVE) U Cocaine Metab Screen (NEGATIVE) U Marijuana (THC) Screen (NEGATIVE) Ethyl Alcohol 337 mg/dL 10/04/20 Range/Units 18:00 WBC (4.5-11.0) K/uL RBC (4.30-5.90) M/uL Hgb (12.0-15.0) g/dL Hct (40.0-54.0) % MCV (80-98) fL MCH (27-31) pg MCHC (32-36) % Plt Count (150-400) K/uL Neut % (Auto) (36-66) % Lymph % (Auto) (24-44) % [place] % (Auto) (2-6) % Eos % (Auto) (2-4) % Baso % (Auto) (0-1) % Sodium (140-148) mmol/L Potassium (3.6-5.2) mmol/L Chloride (100-108) mmol/L Carbon Dioxide (21-32) mmol/L Anion Gap (5.0-14.0) mmol/L BUN (7-18) mg/dL Creatinine (0.8-1.3) mg/dL Est Cr Clr Drug Dosing mL/min Estimated GFR (MDRD) (>60) Glucose (74-106) mg/dL Calcium (8.5-10.1) mg/dL Total Bilirubin (0.2-1.0) mg/dL AST (15-37) U/L ALT (12-78) U/L Alkaline Phosphatase (46-116) U/L Troponin I (0.000-0.056) ng/mL Total Protein (6.4-8.2) g/dL Albumin (3.4-5.0) g/dL Globulin (2.3-3.5) g/dL Albumin/Globulin Ratio (1.2-2.2) Urine Color (YELLOW) Urine Appearance (CLEAR) Urine pH (5.0-8.0) Ur Specific [place] (1.008-1.030) Urine Protein (NEGATIVE) mg/dL Urine Glucose (UA) (NEGATIVE) mg/dL Urine Ketones (NEGATIVE) mg/dL Urine Occult Blood (NEGATIVE) Urine Nitrite (NEGATIVE) Urine Bilirubin (NEGATIVE) Urine Urobilinogen (0.2-1.0) EU/dL Ur Leukocyte Esterase (NEGATIVE) Urine RBC (0-5) Urine WBC (0-5) Ur Epithelial Cells Amorphous Sediment Urine Bacteria Urine Mucus Urine Other Urine Opiates Screen (NEGATIVE) Ur Oxycodone Screen (NEGATIVE) Urine Methadone Screen (NEGATIVE) Ur Propoxyphene Screen (NEGATIVE) Ur Barbiturates Screen (NEGATIVE) Ur Tricyclics Screen (NEGATIVE) Ur Phencyclidine Scrn (NEGATIVE) Ur Amphetamine Screen (NEGATIVE) U Methamphetamines Scrn (NEGATIVE) Urine MDMA Screen (NEGATIVE) U Benzodiazepines Scrn (NEGATIVE) U Cocaine Metab Screen (NEGATIVE) U Marijuana (THC) Screen (NEGATIVE) Ethyl Alcohol 310 mg/dL Medical Clearance: 10/04/20 19:37 Patient care turned over from Dr. Luna. He is now sobering up and has no suicidal ideation and feels no desire to harm anyone else. He is actually fairly jovial at this time. He does not feel he needs intervention or an evaluation, promised to do no harm for the next 24 hours so he will be discharged. I encouraged him to avoid alcohol. He can follow-up with his primary provider to discuss his medications if he feels he is having side effects. Departure - Departure Time of Disposition: 19:48 Sepsis Event Note (ED) - Focused Exam Vital Signs: Vital Signs Temp Pulse Resp BP Pulse Ox 10/04/20 17:02 102 H 16 151/92 H 93 L 10/04/20 16:26 92 140/81 92 L 10/04/20 14:57 98.2 F 100 20 155/95 H 93 L 10/04/20 14:47 91 152/94 H 95 10/04/20 14:21 98.2 F 100 20 155/95 H 93 L
[2020-10-04 17:26] VITALS: BP 151/92; PULSE 102
[2020-10-05] MEDS ORDERED: Aluminum Hydroxide/Magnesium Hydroxide/Simethicone Susp 30 ML Cup ONE (05:54)
--- NOTE | 2020-10-05 08:40 | CR ---
CHEST: Portable 10/04/2020 at 3:50 PM CLINICAL HISTORY:Chest pain COMPARISON:2017 FINDINGS: Patient is rotated to the left. This exaggerates right hilar markings. The heart size, pulmonary vascularity and hilar structures are normal. No infiltrate effusion or pneumothorax is seen. IMPRESSION: No acute cardiopulmonary process.
== END 2020-10-04 19:48 | disposition home or self-care (01) ==
LOC: JP.ED 14:15
DX: F10.120 Alcohol abuse with intoxication, uncomplicated (principal); R07.9 Chest pain, unspecified; I10 Essential (primary) hypertension; Y90.8 Blood alcohol level of 240 mg/100 ml or more; Z72.0 Tobacco use; Z79.899 Other long term (current) drug therapy
CPT/HCPCS: 36415; 71045; 71045-26; 80053; 80305-QW; 80307; 81001; 84484; 85025; 93005; 99283; 99285-25

== ENCOUNTER 2020-10-05 04:40 | Emergency (ER) | payer MEDICAID ==
[2020-10-05] MEDS ORDERED: Aluminum Hydroxide/Magnesium Hydroxide/Simethicone Susp 30 ML Cup PO ONE (05:50)
[2020-10-05 09:27] VITALS: BP 144/76; PULSE 71
== END 2020-10-05 06:35 | disposition home or self-care (01) ==
LOC: JP.ED 04:40
DX: K21.00 Gastro-esophageal reflux disease with esophagitis, without bleeding (principal)
CPT/HCPCS: 36415; 84484; 99283; 99285; A9270

== ENCOUNTER 2021-02-21 05:51 | Emergency (ER) | payer MEDICAID ==
[2021-02-21 05:58] VITALS: BP 141/76; PULSE 57
[2021-02-21] MEDS ORDERED: diphenhydrAMINE 25 MG Cap PO ONE (06:04)
[2021-02-21] MEDS ORDERED: Famotidine 20 MG Tab PO ONE (06:05)
--- NOTE | 2021-02-21 06:11 | EDM.PDOC ---
<Nicolas Chance G - Last Filed: 02/21/21 06:05> ED HPI GENERAL MEDICAL PROBLEM - General Chief Complaint: Allergic Reaction Stated Complaint: TONGUE SWELLING Time Seen by Provider: 02/21/21 05:55 Source of Information: Reports: Patient, Old Records History Limitations: Reports: No Limitations - History of Present Illness INITIAL COMMENTS - FREE TEXT/NARRATIVE: 55 yo male smoker presents with with tongue swelling that began about 4 am today. Has had this many times in the past and no one is sure what is doing it. He has no other sx's of allergy. He normally take Benedryl, but has no money to buy it currently. Didn't want to wake anyone else to borrow some money. Dr. Ureña is his provider. 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) - Related Data Allergies Allergy/AdvReac Type Severity Reaction Status Date / Time No Known Allergies Allergy Verified 02/21/21 06:00 Home Meds: Home Meds PARoxetine [Paxil] 20 mg PO DAILY 05/27/19 [History] amLODIPine [Norvasc] 5 mg PO DAILY 05/02/20 [History] traZODone 100 mg PO BEDTIME 10/04/20 [History] Ibuprofen 600 mg PO ASDIRECTED PRN 02/21/21 [History] Omeprazole 20 mg PO DAILY 02/21/21 [History] tiZANidine [Zanaflex] 4 mg PO DAILY 02/21/21 [History] Past Medical History HEENT History: Reports: Other (See Below) Other HEENT History: Dental caries Cardiovascular History: Reports: Hypertension Other Respiratory History: cough with dark mucous Musculoskeletal History: Reports: Back Pain, Chronic, Fracture Neurological History: Reports: Headaches, Chronic, Head Trauma Psychiatric History: Reports: Anxiety, Bipolar, Depression Other Psychiatric History: ETOH Abuse - Infectious Disease History Infectious Disease History: Reports: Chicken Pox, Measles, Mumps - Past Surgical History HEENT Surgical History: Reports: Eye Surgery Musculoskeletal Surgical History: Reports: Arthroscopic Procedure, Shoulder Surgery Other Musculoskeletal Surgeries/Procedures:: left shoulder Social & Family History - Family History Family Medical History: Unobtainable - Caffeine Use Caffeine Use: Reports: Coffee Other Caffeine Use: mountain dew and pepsi every day cans per day. coffee in the morning 5 per day. ED ROS ALLERGIC REACTION - Review of Systems Review Of Systems: See Below Constitutional: Reports: No Symptoms HEENT: Reports: Other (tongue swelling) Respiratory: Reports: No Symptoms Cardiovascular: Reports: No Symptoms GI/Abdominal: Reports: No Symptoms : Reports: No Symptoms Musculoskeletal: Reports: No Symptoms Skin: Reports: No Symptoms Neurological: Reports: No Symptoms Psychiatric: Reports: No Symptoms ED EXAM GENERAL NO PERIP PULSE - Physical Exam Exam: See Below Exam Limited By: No Limitations General Appearance: Alert, WD/WN, No Apparent Distress Eye Exam: Bilateral Eye: Normal Inspection Ears: Normal External Exam, Normal Canal, Hearing Grossly Normal, Normal TMs Nose: Normal Inspection, No Blood Throat/Mouth: Normal Inspection, Normal Lips, Normal Oropharynx, Normal Voice, No Airway Compromise, Other (R side of tongue is swelling) Head: Atraumatic, Normocephalic Neck: Normal Inspection Respiratory/Chest: No Respiratory Distress, Lungs Clear, Normal Breath Sounds, No Accessory Muscle Use Cardiovascular: Regular Rate, Rhythm, No Edema Extremities: Normal Inspection Neurological: Alert, Oriented, CN II-XII Intact, Normal Cognition, No Motor/Sensory Deficits Psychiatric: Normal Affect, Normal Mood Skin Exam: Warm, Dry, Intact, Normal Color, No Rash Departure - Departure Disposition: Home, Self-Care 01 Clinical Impression: Angioedema Qualifiers: Encounter type: initial encounter Qualified Code(s): T78.3XXA - Angioneurotic edema, initial encounter - Discharge Information Instructions: Angioedema, [id number] Referrals: Yvonne Ureña MD [Primary Care Provider] - Forms: ED Department Discharge Care Plan Goals: Cold fluids or ice may help decrease the swelling, repeat Benadryl every 4 hours if needed and increase activity and diet as tolerated. Return anytime if worsening or concerns. Sepsis Event Note (ED) - Evaluation Sepsis Screening Result: No Definite Risk <Gerson Capps - Last Filed: 02/21/21 08:59> Course - Vital Signs Last Recorded V/S: Last Vital Signs Temp 97.6 F 02/21/21 05:57 Pulse 57 L 02/21/21 05:57 Resp 18 02/21/21 05:57 BP 141/76 H 02/21/21 05:57 Pulse Ox 99 02/21/21 05:57 - Orders/Labs/Meds Meds: Medications Discontinued Medications Generic Name Dose Route Start Last Admin Trade Name Ro PRN Reason Stop Dose Admin Diphenhydramine HCl 75 mg 02/21/21 06:04 02/21/21 06:09 Diphenhydramine 25 Mg Cap PO 02/21/21 06:05 75 mg ONETIME ONE Administration Famotidine 40 mg 02/21/21 06:05 02/21/21 06:10 Famotidine 20 Mg Tab PO 02/21/21 06:06 40 mg ONETIME ONE Administration - Re-Assessments/Exams Free Text/Narrative Re-Assessment/Exam: 02/21/21 08:03 Patient care turned over from Dr. Chance pending response to Benadryl and Pepcid. Patient's angioedema of his tongue is slightly decreased, he feels comfortable going home as this is taking the usual course, once it starts receiving tends to continue getting better. He was observed for 1 hour. He was discharged with 24 additional doses of Benadryl to take every 4 hours as needed. He will return if worsening. Departure - Departure Time of Disposition: 08:18 Sepsis Event Note (ED) - Focused Exam Vital Signs: Vital Signs Temp Pulse Resp BP Pulse Ox 02/21/21 05:57 97.6 F 57 L 18 141/76 H 99
== END 2021-02-21 08:18 | disposition home or self-care (01) ==
LOC: JP.ED 05:51
DX: T78.3XXA Angioneurotic edema, initial encounter (principal); I10 Essential (primary) hypertension; F17.200 Nicotine dependence, unspecified, uncomplicated; Z79.899 Other long term (current) drug therapy
CPT/HCPCS: 99283; A9270

== ENCOUNTER 2021-08-11 10:48 | Emergency (ER) | payer MEDICAID ==
[2021-08-11 11:36] VITALS: BP 140/71; PULSE 59
[2021-08-11] MEDS: Bacitracin Oint 1 GM U/D Packet TOP ONE (12:34)
== END 2021-08-11 14:03 | disposition home or self-care (01) ==
LOC: JP.ED 10:48
DX: S61.212A Laceration without foreign body of right middle finger without damage to nail, initial encounter (principal); I10 Essential (primary) hypertension; Z72.0 Tobacco use; Z79.899 Other long term (current) drug therapy; W26.8XXA Contact with other sharp object(s), not elsewhere classified, initial encounter
CPT/HCPCS: 12001; 99282; 99282-25

== ENCOUNTER 2023-01-23 22:19 | Emergency (ER) | payer MEDICARE, MEDICAID ==
[2023-01-24 04:53] VITALS: BP 159/96
[2023-01-24 05:09] VITALS: PULSE 56
== END 2023-01-24 05:22 | disposition home or self-care (01) ==
LOC: JP.ED 22:19
DX: T78.3XXA Angioneurotic edema, initial encounter (principal); I10 Essential (primary) hypertension; K21.9 Gastro-esophageal reflux disease without esophagitis; Z72.0 Tobacco use; Z79.899 Other long term (current) drug therapy
CPT/HCPCS: 36415; 36430; 86850; 86900; 86901; 99284; P9017

== ENCOUNTER 2023-02-14 05:47 | Emergency (ER) | payer MEDICARE, MEDICAID ==
[2023-02-14 09:34] VITALS: BP 119/78; PULSE 61
== END 2023-02-14 09:30 | disposition home or self-care (01) ==
LOC: JP.ED 05:47
DX: D84.1 Defects in the complement system (principal); I10 Essential (primary) hypertension
CPT/HCPCS: 36415; 36430; 86850; 86900; 86901; 99283; P9017

== ENCOUNTER 2023-03-18 03:38 | Emergency (ER) | payer MEDICARE, MEDICAID ==
[2023-03-18 10:41] VITALS: BP 152/88; PULSE 72
== END 2023-03-18 10:57 | disposition home or self-care (01) ==
LOC: JP.ED 03:38
DX: T78.3XXA Angioneurotic edema, initial encounter (principal); I10 Essential (primary) hypertension; K21.9 Gastro-esophageal reflux disease without esophagitis; Z79.899 Other long term (current) drug therapy
CPT/HCPCS: 36415; 36430; 86850; 86900; 86901; 99284; P9017

== ENCOUNTER 2023-12-09 16:36 | Emergency (ER) | payer MEDICARE, MEDICAID ==
[2023-12-09] MEDS ORDERED: HYDROmorphone 0.5 MG/0.5 ML Syringe IVPUSH PRN (17:08)
[2023-12-09] MEDS ORDERED: Naloxone 0.4 MG/ML SDV IVPUSH PRN (17:08)
[2023-12-09] MEDS: Sodium Chloride 0.9% 1,000 ML IV ONE ×2 (17:14→19:35)
[2023-12-09 17:15] LABS: BASOPHILS ABSOLUTE AUTO 0.01 K/uL (0.00-0.10); BASOPHILS PERCENT AUTO 0.1 % (0.1-1.3); EOSINOPHILS ABSOLUTE AUTO 0.09 K/uL (0.00-0.40); HEMATOCRIT 39.7 % (38.4-49.7); HEMOGLOBIN 13.6 g/dL (12.9-16.9); IMMATURE GRAN ABSOLUTE AUTO 0.04 K/uL (0.00-0.23); IMMATURE GRAN PERCENT AUTO 0.4 % (0.0-0.7); LYMPHOCYTES PERCENT AUTO 19.4 % (11.4-47.7); MEAN CORPUSCULAR HEMOGLOBIN 33.2 pg (31.6-35.5); MEAN CORPUSCULAR HGB CONC 34.3 g/dL (31.6-35.5); MEAN CORPUSCULAR VOLUME 96.8 fL (81.4-99.0); MONOCYTES PERCENT AUTO 5.4 % (3.3-12.6); NEUTROPHILS ABSOLUTE AUTO 6.85 K/uL (1.0-7.6); NEUTROPHILS PERCENT AUTO 73.7 % (40.0-78.1); PLATELET COUNT,PLT 113 K/uL (130-375); WHITE BLOOD CELL COUNT,WBC 9.3 K/uL (3.2-11.0)
[2023-12-09] MEDS: Ondansetron 4 MG/2 ML SDV IVPUSH ONE (17:17)
[2023-12-09 17:33] LABS: PROTHROMBIN TIME 10.1 sec (9.2-10.6)
[2023-12-09 17:34] LABS: A/G RATIO 1.3 (1.2-2.2); ALANINE AMINOTRANSFERASE,ALT 33 U/L (12-78); ALBUMIN 3.9 g/dL (3.4-5.0); ALKALINE PHOSPHATASE 56 U/L (46-116); ASPARTATE AMNIOTRANSFERASE,AST 35 U/L (15-37); BILIRUBIN TOTAL 1.1 mg/dL (0.2-1.0); BLOOD UREA NITROGEN,BUN 12 mg/dL (7-18); CALCIUM 8.8 mg/dL (8.5-10.1); CARBON DIOXIDE,CO2 25 mmol/L (21-32); CHLORIDE,CL 101 mmol/L (100-108); CREATININE 0.9 mg/dL (0.8-1.3); ESTIMATED GFR 98 mL/min (>60); GLUCOSE RANDOM 93 mg/dL (74-106); POTASSIUM,K 3.2 mmol/L (3.6-5.2); PROTEIN TOTAL,TP 6.9 g/dL (6.4-8.2); SODIUM,NA 139 mmol/L (140-148)
[2023-12-09 17:39] LABS: ANION GAP 16.2 mmol/L (5.0-14.0)
[2023-12-09 20:08] LABS: BLOOD UREA NITROGEN,BUN 12 mg/dL (7-18); CALCIUM 8.1 mg/dL (8.5-10.1); CARBON DIOXIDE,CO2 25 mmol/L (21-32); CHLORIDE,CL 105 mmol/L (100-108); CREATININE 0.8 mg/dL (0.8-1.3); ESTIMATED GFR 102 mL/min (>60); GLUCOSE RANDOM 85 mg/dL (74-106); POTASSIUM,K 3.2 mmol/L (3.6-5.2); SODIUM,NA 141 mmol/L (140-148)
[2023-12-09 20:10] LABS: ANION GAP 14.2 mmol/L (5.0-14.0)
== END 2023-12-09 21:24 | disposition home or self-care (01) ==
LOC: JP.ED 16:36
DX: S02.40DA Maxillary fracture, left side, initial encounter for closed fracture (principal); S01.21XA Laceration without foreign body of nose, initial encounter; S01.81XA Laceration without foreign body of other part of head, initial encounter; S00.81XA Abrasion of other part of head, initial encounter; F10.920 Alcohol use, unspecified with intoxication, uncomplicated; I10 Essential (primary) hypertension; K21.9 Gastro-esophageal reflux disease without esophagitis; Z79.899 Other long term (current) drug therapy; V18.2XXA Unspecified pedal cyclist injured in noncollision transport accident in nontraffic accident, initial encounter
CPT/HCPCS: 12011; 36415; 70450; 70486; 72125; 76377; 80048; 80053; 80307; 83605; 85025; 85610; 96361; 96374; 99285-25; J2405; J7030